=== PATIENT | female | born 1960 | race Caucasian/White ===

== ENCOUNTER 2017-10-24 01:19 | Outpatient (CLI) | payer OTHER, SELFPAY ==
--- NOTE | 2017-10-24 13:30 | DI.US_ITS ---
SYMPTOMS/DIAGNOSIS: URIC ACID KIDNEY STONE, N20.0, F/U BILATERAL STONES RENAL ULTRASOUND: The kidneys are normal in size and shape. There is no evidence of renal mass, hydronephrosis or nephrolithiasis. Previous CT of 08/17/16 showed numerous bilateral tiny renal calculi. Urinary bladder is unremarkable in appearance with pre and postvoid urinary bladder volume measurements 95 cc and 7 cc, respectively. CONCLUSION: Negative renal ultrasound.
== END 2017-10-24 01:39 ==
PROVIDERS: PCP Family Medicine; Visit Provider Urology
DX: N20.0 Calculus of kidney (principal)
CPT/HCPCS: 76770

== ENCOUNTER 2020-01-17 13:00 | Emergency (ER) | payer OTHER, SELFPAY ==
[2020-01-17 13:08] VITALS: BP 206/70; PULSE 95; RESP 16; TEMP 36.4; O2SAT 97
[2020-01-17 13:18] LABS: Bilirubin Negative (Negative); Blood Moderate (Negative); Clarity Sl Cloudy (Clear); Glucose Negative (Negative); Ketones Negative (Negative); Leukocyte Esterase Negative (Negative); Nitrite Negative (Negative); Specific Gravity >= 1.030 (1.005-1.025); Urobilinogen 0.2 EU/dL (Up TO 0.2)
--- NOTE | 2020-01-17 13:18 | W.ED.GENAD ---
Discharge Plan Disposition Patient Disposition: HOME Condition: Stable Discharge Details Clinical Impression: Kidney stones Primary Care Provider: Carleen Dan ED Provider: Taylor Em Home Meds and New Rx's Prescriptions: New tamsulosin 0.4 mg capsule 0.4 mg PO DAILY 7 Days Qty: 7 RF: 0 ketorolac 10 mg tablet 10 mg PO TID PRN (Reason: pain) 5 Days Qty: 15 RF: 0 No Action potassium citrate [Urocit-K 15] 15 mEq tablet extended release 15 meq PO BID Qty: 180 RF: 4 Discharge Instructions Instructions: Kidney Stones (ED) Additional Instructions: CT shows a 5mm stone in the left distal ureter (the tube leading into your bladder). At this time it does not appear to be infected. We will give you pain medications and Flomax to help the stone pass. Strain all your urine. Follow up with urology in the next week. Return to ED for any fever, vomiting, or any concerns. Please take Tylenol or Ibuprofen with food every 4-6 hours as needed for pain and swelling. Referrals: Andrae Storey MD [ [facility] STAFF PHYSICIAN] - Carleen Dan MD, [place] [Primary Care Provider] - Medical Decision Making 59-year-old female presents to the ER with chief complaint of left flank pain which began this morning. She reports that she has a history of kidney stones and this feels similar. She denies any nausea vomiting or fever. She does have a past medical history kidney stones, vertigo, she does have an ileostomy in place. She reports straining for urine and hesitancy 1446: Preliminary CT result obtained by Dr. Corbett radiologist who describes multiple bilateral nonobstructing renal calculus bilateral kidneys. There is a 5 mm distal ureter obstructing stone and another 1 mm stone in the left distal ureter. EXAM: CT RENAL COLIC WO INDICATION: Left flank pain, hx of kidney stones. COMPARISON: CT RENAL COLIC WO CONTRAST from 08/17/2016 TECHNIQUE: CT examination was performed without contrast administration. FINDINGS: Images obtained through the lung bases are unremarkable. Visualized portions of the liver and spleen appear intact except for apparent geographic hepatic steatosis.. Visualized portions of the pancreas are unremarkable. Gallbladder and bile ducts are CT normal. Abdominal aorta is of normal diameter. No significant abdominal wall hernia. No significant abdominal or pelvic adenopathy. There is a right lower quadrant ileostomy. Adrenals appear normal bilaterally. There are multiple bilateral nonobstructing renal calculi. There is no right hydronephrosis hydroureter. On the left there is moderate hydronephrosis hydroureter to the level of the ureterovesical junction where there appear to be a least 2 stones, 1 measuring about 5 millimeters in diameter, and the other measuring about 1 millimeter in diameter. The more medially located stone may lie within the bladder lumen or may be intramural. Otherwise urinary bladder is grossly unremarkable and is nearly empty. Party Host/Hostess structures appear intact as visualized. IMPRESSION: Multiple bilateral nonobstructing renal calculi. One or 2 obstructing stones at the ureterovesical junction, 1 or both stones may be intramural. At this time there is no evidence of a infected stone. Urine shows moderate blood, 10-20 WBCs with many epithelial cells no leukocytes. Culture not indicated at this time due to squamous contamination. No leukocytosis WBC count is 9.02. BUN is 18 creatinine is 1.[address] results with patient who verbalized understanding. She does see Dr. Storey on a regular basis. She feels much better after the Toradol. Will prescribe her tamsulosin and Toradol to go home with. Patient remained hemodynamically stable throughout stay. This text was generated using [employer] dictation system, please disregard any oddities of phrase or misspellings. HPI General Mode of arrival: ambulatory. Date/Time Provider Initiated Documentation: 01/17/20 13:10. Limitations to Documentation: no limitations. Information obtained by: patient. HPI Narrative: 59-year-old female presents to the ER with chief complaint of left flank pain which began this morning. She reports that she has a history of kidney stones and this feels similar. She denies any nausea vomiting or fever. She does have a past medical history kidney stones, vertigo, she does have an ileostomy in place. She reports straining for urine and hesitancy. Related Data Home Medications Medication Instructions Recorded Confirmed potassium citrate 15 mEq (1,620 15 meq PO BID #180 tab-cap 11/26/18 01/17/20 mg) tablet,extended release ketorolac 10 mg PO TID PRN 5 Days #15 tab 01/17/20 tamsulosin 0.4 mg PO DAILY 7 Days #7 cap 01/17/20 Previous Rx's Medication Instructions Recorded potassium citrate 15 mEq (1,620 15 meq PO BID #180 tab-cap 11/26/18 mg) tablet,extended release ketorolac 10 mg PO TID PRN 5 Days #15 tab 01/17/20 tamsulosin 0.4 mg PO DAILY 7 Days #7 cap 01/17/20 Allergies Allergy/AdvReac Type Severity Reaction Status Date / Time mesalamine Allergy HIVES Unverified 01/17/20 13:11 Sulfa (Sulfonamide Allergy Unverified 01/17/20 13:11 Antibiotics) General Stated Complaint: FlankPain ALIE: 3 Review of Systems Narrative: Constitutional: Negative for weight loss, alert and oriented, well groomed, normal body habitus, appears comfortable. HEENT: Denies trauma, headaches, blurry vision, nasal discharge, sore throat, trouble swallowing. Chest: Denies chest pain, palpitations, irregular rhythm, hypertension. Respiratory: Denies Shortness of breath, cough, hemoptysis. GI: Denies abdominal pain, nausea, vomiting, diarrhea, constipation. : Denies rectal bleeding. Positive left flank pain, urinary hesitancy. Neuro: Denies dizziness, blurry vision, weakness, syncope, headache or facial numbness. Hematologic: Denies easy bruising, intolerance to heat or cold, hair loss. FORMERLY [facility], 1928–1983 Medical History (Updated 01/17/20 @ 14:50 by Taylor Em) Kidney stones Surgical History MOHS SURGERY (02/02/16) [facility] Family History Maternal Cousin RA (rheumatoid arthritis) Ulcerative colitis Maternal Cousin Ulcerative colitis Social History Smoking/Tobacco Use Status: Never Smoking risk assessment performed?: Yes Alcohol Intake: never Substance use type: does not use Do you feel safe in your relationship?: Yes Exam Narrative Exam Narrative: Constitutional: Alert and oriented x3. Appears stated age. Normal body habitus. Head: Normocephalic, no trauma. Eyes: Pupils PERRLA, Red reflex noted, EOM's intact. Eyelids symmetrical without lesions, discharge, or swelling. ENT: Bilateral TM's WNL, External ear normal to inspection, no mastoid TTP, swelling, or erythema, Nasal turbinates WNL, no nasal discharge. Normal dentition, Posterior pharynx WNL, no exudate. Chest: RRR, Normal S1, S2, distal pulses intact. Resp: Lungs clear to auscultation bilaterally, no wheezes, rales, or rhonchi. Abdomen: She is complaining of left flank pain, she has an ileostomy bag noted to her right lower quadrant. Musculoskeletal: Normal gait, 5/5 strength to all four extremities. Skin: No suspicious rashes or lesions. Capillary refill less than 2 sec. Neurologic: Cranial nerves II-XII intact. Alert and oriented x 3. DTR's intact. Hematologic/Lymphatic: No ecchymosis, no lymphadenopathy. Course Vital Signs Vital signs: Vital Signs Temperature 36.4 C L 01/17/20 13:08 Pulse 95 H 01/17/20 13:08 Respiratory Rate 16 01/17/20 13:08 Blood Pressure 206/70 H 01/17/20 13:08 Pulse Oximetry 97 01/17/20 13:08 Temperature 36.4 C L 01/17/20 13:08 Temperature Source Skin 01/17/20 13:08 Pulse 95 H 01/17/20 13:08 Respiratory Rate 16 01/17/20 13:08 Respiratory Effort 01/17/20 13:08 Blood Pressure 206/70 H 01/17/20 13:08 Blood Pressure Position Sitting 01/17/20 13:08 Pulse Oximetry 97 01/17/20 13:08 Oxygen Delivery Method Room Air 01/17/20 13:08 Oxygen Flow Rate 0 01/17/20 13:08 Pain Level 6 01/17/20 13:08
[2020-01-17 13:31] LABS: Bacteria Many HPF (Negative); C & S Indicated? No/Sq. Contamination; Casts Negative LPF (Negative); Crystals Negative HPF (Negative); Epithelial Cells Many HPF (Negative); Mucus Negative (Negative); RBC 20-50 HPF (0-2)
[2020-01-17 13:38] LABS: Abs Immature Grans 0.02 10^3/uL (0.0-0.06); Absolute Basophil Count 0.05 10^3/uL (0.0-0.2); Absolute Lymphocyte Count 3.36 10^3/uL (1.2-3.4); Absolute Monocyte Count 0.62 10^3/uL (0.1-0.8); Absolute Neutrophil Count 4.77 10^3/uL (1.2-6.7); Basophils % 0.6; Eosinophils % 2.2; HCT 46.3 % (36.0-46.0); HGB 14.6 g/dL (11.2-15.7); Immature Grans % 0.2; Lymphocytes % 37.3; MCH 26.8 pg (27.0-33.0); MCHC 31.5 % (32.0-36.0); MPV 10.2 fL (8.0-11.0); Monocytes % 6.9; Neutrophils % 52.8; Nucleated RBC 0 %; Platelet Count 291 10^3/uL (130-400); RBC 5.45 10^6/uL (3.93-5.22); RDW 13.9 % (11.7-14.6); RDW-SD 43.1 fL; WBC 9.02 10^3/uL (4.4-10.8)
[2020-01-17 13:44] LABS: ALT 52 U/L (14-59); AST 23 U/L (15-37); Albumin 3.8 g/dL (3.4-5.0); Alkaline Phosphatase 111 U/L (46-116); Anion Gap 7.1 mmol/L (3-11); BUN 18 mg/dL (7-18); Bilirubin, Total 0.4 mg/dL (0.2-1.0); CO2 26.9 mmol/L (21.0-32.0); CREATININE 1.07 mg/dL (0.55-1.02); Calcium 8.5 mg/dL (8.5-10.1); Chloride 106 mmol/L (98-107); Estimated GFR 52.13 (mL/min/1.73m2); Glucose 106 mg/dL (74-106); Potassium 3.6 mmol/L (3.5-5.1); Sodium 140 mmol/L (136-145); Total Protein 7.9 g/dL (6.4-8.2)
[2020-01-17] MEDS: Ketorolac 15 MG/ML VIAL IVP (13:52)
[2020-01-17] MEDS: Ondansetron 4 MG/2 ML VIAL IVP (13:53)
[2020-01-17] MEDS: Normal Saline 1,000 ML 1000 ML IV (14:03)
--- NOTE | 2020-01-17 14:21 | DI.CT_ITS ---
EXAM: CT RENAL COLIC WO INDICATION: Left flank pain, hx of kidney stones. COMPARISON: CT RENAL COLIC WO CONTRAST from 08/17/2016 TECHNIQUE: CT examination was performed without contrast administration. FINDINGS: Images obtained through the lung bases are unremarkable. Visualized portions of the liver and splee n appear intact except for apparent geographic hepatic steatosis.. Visualized portions of the pancreas are unremarkable. Gallbladder and bile ducts are CT normal. Abdominal aorta is of normal diameter. No significant abdominal wall hernia. No significant abdominal or pelvic adenopathy. There is a right lower quadrant ileostomy. Adrenals appear normal bilaterally. There are multiple bilateral nonobstructing renal calculi. There is no right hydronephrosis hydroure ter. On the left there is moderate hydronephrosis hydroureter to the level of the ureterovesical junction where there appear to be a least 2 stones, 1 measuring about 5 millimeters in diameter, and the other measuring about 1 millimeter in diameter. The more medially located stone may lie within the bladde r lumen or may be intramural. Otherwise urinary bladder is grossly unremarkable and is nearly empty. Director Quality Assurance structures appear intact as visualized. IMPRESSION: Multiple bilateral nonobstructing renal calculi. One or 2 obstructing stones at the ureterovesical junction, 1 or both stones may be intramural. RADIATION DOSE DELIVERED: 1,267.65mGy.cm Total DLP
[2020-01-17 14:41] VITALS: BP 170/81; PULSE 81; RESP 18; O2SAT 97
[2020-01-17] MEDS: Tamsulosin 0.4 MG CAPCR PO (14:52)
--- NOTE | 2020-01-17 15:20 | NUR.NOTE ---
Nursing Note: Referral for follow up with Urology, [facility] faxed. Anne-Marie Silver
== END 2020-01-17 15:15 | disposition home or self-care (01) ==
PROVIDERS: Emergency Provider Registered Nurse Emergency; PCP Family Medicine
DX: N13.2 Hydronephrosis with renal and ureteral calculous obstruction (principal); N13.4 Hydroureter; Z87.442 Personal history of urinary calculi
CPT/HCPCS: 36415; 80053; 96361; 96374; 96375; 99284; 74176; 81003; 81015; 85025; J1885; J2405

== ENCOUNTER 2020-02-24 00:57 | Outpatient (CLI) | payer OTHER, SELFPAY ==
--- NOTE | 2020-02-24 08:00 | DI.US_ITS ---
EXAM: US RENAL CLINICAL HISTORY: monitoring left hydronephrosis,calculus of kidney,n20.0,n13.30 TECHNIQUE: Ultrasound of both kidneys performed using standard protocol. COMPARISON: US US renal from 10/24/2017 FINDINGS: RIGHT KIDNEY: Measures 12 cm in length. No cysts evident. Normal cortical thickness and corticomedullary differenti ation .No solid masses There is 3 small nonobstructive echogenic foci. One in the upper pole 1 in the midpole and 1 in lowe r pole. The largest measuring 5 millimeters. Probably nonobstructive calculi. LEFT KIDNEY: Measures 12.2 cm in length. Normal cortical thickness and corticomedullary differentiaion. No solid s masses. Multiple small echogenic foci measuring up to 5 millimeters also noted on this side which a re probably nonobstructive calculi. In the lower pole there are 2 adjacent cystic areas which are ei ther cysts or dilated calices. Urinary bladder: Prevoid volume 250 cc. Postvoid volume 8.6 cc. No obvious mass in the bladder. Walter th ureterovesical jets are identified. In addition, an additional ureterovesical jet was noted on th e right side which may indicated double collecting system. IMPRESSION: 1. Bilateral nonobstructive renal calculi. These measure up to 5 millimeters. 2. Small 2 adjacent cyst or calices in the lower pole left kidney. 3. There are 2 ureterovesical jets noted on the right side of the urinary bladder which may indicate a double collecting system on the right side. DATA REPOSITORY:
== END 2020-02-24 01:17 ==
PROVIDERS: PCP Nurse Practitioner Family; Visit Provider Nurse Practitioner Gerontology
DX: N20.0 Calculus of kidney (principal); N13.30 Unspecified hydronephrosis
CPT/HCPCS: 76770

== ENCOUNTER 2020-02-28 04:07 | Outpatient (CLI) | payer OTHER, SELFPAY ==
--- NOTE | 2020-02-28 08:15 | DI.MAMMO_ITS ---
EXAM: MG MAMMO SCREENING CLINICAL HISTORY: screening,Z12.39. TECHNIQUE: Bilateral full field digital CC and MLO mammographic images were obtained with 3D tomosyn thesis and utilizing computer aided detection (CAD). COMPARISON: Prior mammograms dating back to 2013, the most recent being August 2016. FINDINGS: Asymmetric tissue in left breast is unchanged. Small benign-appearing nodule located laterally left breast is unchanged from 2014 and therefore benign. No new left breast findings. There is nodular density in the right breast best seen on see CT imaging, this located approximately 7 centimetres in from the nipple and measuring 7 x 7 millimeters. On cc imaging there is also anothe r nodule in the right breast measuring 7 x 5 millimeters, this located 10 centimetres in from the nip ple. Spot compression view also recommended spot compression view and ultrasound recommended. There are no malignant-appearing microcalcification groups in either breast. There is no significant arch itectural distortion nor skin thickening-retraction. IMPRESSION: No radiographic evidence of malignancy in left breast. Two nodular densities evident in the right breast. Spot-compression CC and straight lateral 3D views recommended. Also breast ultrasound. BI-RADS Category 0 - Assessment Incomplete: Need additional imaging evaluation Breast Density - Category B - Scattered areas of fibroglandular density Breast density Category C or D implies that the patient has dense breast tissue. Dense breast tissue can make it harder to find cancer on a mammogram. Dense breast tissue is also associated with an incr eased risk of breast cancer. This information about the result of the mammogram report was provided to the patient to raise their awareness. Use this report when you speak with the patient about their risks for breast cancer, which includes their family history. At that time, you may recommend additional screening tests (Ultrasoun d or MRI) as these tests may add significant information. A negative radiographic report should not delay biopsy if a dominant or clinically suspicious mass is present. Up to ten percent of cancers are not identified on mammography. A negative report may reinforce clinical impression. Adenosis and dense breasts may obscure an underlying neoplasm. False positive reports average 6 to 10%. Patient will receive a letter notifying them of these results.
== END 2020-02-28 04:27 ==
PROVIDERS: PCP Nurse Practitioner Family; Visit Provider Nurse Practitioner Family
DX: Z12.31 Encounter for screening mammogram for malignant neoplasm of breast (principal); R92.8 Other abnormal and inconclusive findings on diagnostic imaging of breast
CPT/HCPCS: 77063; 77067

== ENCOUNTER 2020-03-06 03:40 | Outpatient (CLI) | payer OTHER, SELFPAY ==
[2020-03-06 09:40] LABS: ALT 43 U/L (14-59); AST 18 U/L (15-37); Albumin 3.9 g/dL (3.4-5.0); Alkaline Phosphatase 101 U/L (46-116); Anion Gap 6.8 mmol/L (3-11); BUN 17 mg/dL (7-18); Bilirubin, Total 0.4 mg/dL (0.2-1.0); CO2 29.2 mmol/L (21.0-32.0); CREATININE 1.01 mg/dL (0.55-1.02); Calcium 9.1 mg/dL (8.5-10.1); Chloride 102 mmol/L (98-107); Estimated GFR 55.72 (mL/min/1.73m2); FREE T4 1.15 ng/dL (0.76-1.46); Glucose 99 mg/dL (74-106); Potassium 4.7 mmol/L (3.5-5.1); Sodium 138 mmol/L (136-145); TSH 1.43 uIU/mL (0.36-3.74); Total Protein 7.5 g/dL (6.4-8.2)
[2020-03-06 10:51] LABS: Calculated LDL 176 mg/dL (<100); Cholesterol 261 mg/dL (<200); HDL Cholesterol 54 mg/dL (40-60); Triglyceride 156 mg/dL (<150)
[2020-03-06 11:54] LABS: ESR 16 mm/hr (0-30)
[2020-03-06 18:03] LABS: Rheumatoid Factor <8.6 IU/mL (<12.0)
== END 2020-03-06 04:00 ==
PROVIDERS: PCP Nurse Practitioner Family; Visit Provider Nurse Practitioner Family
DX: E78.5 Hyperlipidemia, unspecified (principal); M19.90 Unspecified osteoarthritis, unspecified site; Z82.61 Family history of arthritis; Z87.19 Personal history of other diseases of the digestive system
CPT/HCPCS: 36415; 80053; 80061; 85652; 83036; 84439; 84443; 86431

== ENCOUNTER 2020-03-10 00:28 | Outpatient (CLI) | payer OTHER, SELFPAY ==
--- NOTE | 2020-03-10 | DI.US_ITS ---
EXAM: MG MAMMO SCREEN CALL BACK UNI and U/S breast RT limited CLINICAL HISTORY: F/U MAMMO,TWO RT BREAST NODULAR DENSITIES. TECHNIQUE: Craniocaudal and mediolateral oblique Full Field Digital Mammography views of the right b reast with Computer Aided Diagnosis followed by Tomosynthesis and right breast ultrasound. COMPARISON: Comparison is made with prior examinations. FINDINGS: Mammography/Tomosynthesis: Masses/Architectural Distortion: None seen. Microcalcifictions: No suspicious pleomorphic-type are seen. Skin Thickening/Nipple Retraction: None. Right breast US: All 4 quadrants of the right breast were evaluated sonographically. Echotexture: Normal appearance of the glandular tissue. Shadowing: No suspicious foci. Cyst: There is a 5 x 2 x 4 mm cyst at the 11 o'clock position of the right breast 7 cm from the nippl e. There is a 5 x 4 x 5 mm cyst at the 10 o'clock position of the right breast 10 cm from the nipple . Solid lesions: None seen. Ductal dilation: None. IMPRESSION: 1. No definite evidence of malignancy is noted. 2. A six-month follow-up right mammogram is recommended for re-evaluation. 3. The findings were discussed with the patient on the date of the examination. BI-RADS Category 3 - 6 month - Probably Benign Finding: Recommend follow-up mammography in 6 months Breast Density - Category B - Scattered areas of fibroglandular density A negative radiographic report should not delay biopsy if a dominant or clinically suspicious mass is present. Up to ten percent of cancers are not identified on mammography. A negative report may reinforce clinical impression. Adenosis and dense breasts may obscure an underlying neoplasm. False positive reports average 6 to 10%. Patient will receive a letter notifying them of these results.
== END 2020-03-10 00:48 ==
PROVIDERS: PCP Nurse Practitioner Family; Visit Provider Nurse Practitioner Family
DX: Z12.31 Encounter for screening mammogram for malignant neoplasm of breast (principal); R92.8 Other abnormal and inconclusive findings on diagnostic imaging of breast; N60.11 Diffuse cystic mastopathy of right breast
CPT/HCPCS: 76642; 77063; 77067

== ENCOUNTER 2020-09-15 01:57 | Outpatient (CLI) | payer OTHER, SELFPAY ==
--- NOTE | 2020-09-15 10:00 | DI.MAMMO_ITS ---
Exam(s) MAMMO DIAGNOSTIC UNI EXAM: MAMMO DIAGNOSTIC UNI CLINICAL HISTORY: 3-6 MO F/U,f/u abnl mammo, z09,r92.8. TECHNIQUE: Craniocaudal and mediolateral oblique Full Field Digital Mammography views of the right b reast with Computer Aided Diagnosis followed by Tomosynthesis. COMPARISON: Priors available for comparison. FINDINGS: Mammography/Tomosynthesis: Masses/Architectural Distortion: There are stable scattered nodular densities in the right breast. Microcalcifictions: No suspicious pleomorphic-type are seen. Skin Thickening/Nipple Retraction: None. IMPRESSION: 1. No evidence of malignancy is noted. 2. Unless there is more urgent need, follow-up screening mammography is recommended, as per [employer] guidelines. 3. The findings were discussed with the patient on the date of the examination. BI-RADS Category 2 - Benign Findings Breast Density - Category B - Scattered areas of fibroglandular density Breast density Category C or D implies that the patient has dense breast tissue. Dense breast tissue can make it harder to find cancer on a mammogram. Dense breast tissue is also associated with an incr eased risk of breast cancer. This information about the result of the mammogram report was provided to the patient to raise their awareness. Use this report when you speak with the patient about their risks for breast cancer, which includes their family history. At that time, you may recommend additional screening tests (Ultrasoun d or MRI) as these tests may add significant information. A negative radiographic report should not delay biopsy if a dominant or clinically suspicious mass is present. Up to ten percent of cancers are not identified on mammography. A negative report may reinforce clinical impression. Adenosis and dense breasts may obscure an underlying neoplasm. False positive reports average 6 to 10%. Patient will receive a letter notifying them of these results.
== END 2020-09-15 02:17 ==
PROVIDERS: PCP Nurse Practitioner Family; Visit Provider Nurse Practitioner Family
DX: Z09 Encounter for follow-up examination after completed treatment for conditions other than malignant neoplasm (principal); R92.8 Other abnormal and inconclusive findings on diagnostic imaging of breast
CPT/HCPCS: 77061; 77065; G0279

== ENCOUNTER 2021-01-05 09:41 | Outpatient (CLI) | payer OTHER, SELFPAY ==
--- NOTE | 2021-01-05 | DI.RAD_ITS ---
Exam(s) XR HIP RT COMPLETE AP PELVIS EXAM: XR HIP RT COMPLETE AP PELVIS INDICATION: PRIMARY OA RT HIP, M16.11. COMPARISON: CT CT RENAL COLIC WO from 01/17/[address] RENAL COLIC WO from 01/17/2020 TECHNIQUE: 2D digital imaging was performed. FINDINGS: There is severe narrowing of both hip joint spaces. There is bilateral acetabular spurring, left gre ater than right. Subchondral cyst formation is seen bilaterally. There is a question slight flatten ing of both femoral heads. SI joints and pubic symphysis are unremarkable. A right lower quadrant o stomy is noted. IMPRESSION: Severe degenerative changes of both hips. DATA REPOSITORY: RADIATION DOSE DELIVERED:
== END 2021-01-05 10:01 ==
PROVIDERS: PCP Nurse Practitioner Family; Visit Provider Nurse Practitioner
DX: M16.0 Bilateral primary osteoarthritis of hip (principal)
CPT/HCPCS: 73502

== ENCOUNTER 2021-03-31 00:08 | Outpatient (CLI) | payer OTHER, SELFPAY ==
--- NOTE | 2021-03-31 06:45 | DI.MAMMO_ITS ---
Exam(s) MAMMO SCREENING EXAM: MAMMO SCREENING CLINICAL HISTORY: screening,z12.39. TECHNIQUE: Bilateral full field digital CC and MLO mammographic images were obtained with 3D tomosyn thesis and utilizing computer aided detection (CAD). COMPARISON: Prior mammograms dating back to 2012 were reviewed, the most recent being February 2020 a nd diagnostic mammogram of August 2020. Ultrasound examination of February 2020 was also reviewed. FINDINGS: Asymmetric tissue and small benign-appearing nodules in the left breast are unchanged from 2013. Small nodular densities seen in the right breast on CC 3D imaging are unchanged. There are no new spiculated masses nor new malignant appearing microcalcification groups. There is no significant architectural distortion nor skin thickening-retraction. IMPRESSION: Stable benign findings. No radiographic evidence of malignancy. BI-RADS Category 2 - Benign Findings Breast Density - Category B - Scattered areas of fibroglandular density Breast density Category C or D implies that the patient has dense breast tissue. Dense breast tissue can make it harder to find cancer on a mammogram. Dense breast tissue is also associated with an incr eased risk of breast cancer. This information about the result of the mammogram report was provided to the patient to raise their awareness. Use this report when you speak with the patient about their risks for breast cancer, which includes their family history. At that time, you may recommend additional screening tests (Ultrasoun d or MRI) as these tests may add significant information. A negative radiographic report should not delay biopsy if a dominant or clinically suspicious mass is present. Up to ten percent of cancers are not identified on mammography. A negative report may reinforce clinical impression. Adenosis and dense breasts may obscure an underlying neoplasm. False positive reports average 6 to 10%. Patient will receive a letter notifying them of these results.
== END 2021-03-31 00:28 ==
PROVIDERS: PCP Nurse Practitioner Family; Visit Provider Nurse Practitioner Family
DX: Z12.31 Encounter for screening mammogram for malignant neoplasm of breast (principal)
CPT/HCPCS: 77063; 77067

== ENCOUNTER 2021-05-03 15:34 | Outpatient (CLI) | payer OTHER, SELFPAY ==
--- NOTE | 2021-05-03 14:45 | DI.RAD_ITS ---
Exam(s) XR PELVIS AP EXAM: XR PELVIS AP CLINICAL HISTORY: pre op R CHAI. TECHNIQUE: 2D digital imaging was performed. COMPARISON: CR XR HIP RT COMPLETE AP PELVIS from 01/05/2021 FINDINGS: BONES: No acute fracture is present. No bony destructive lesion is seen. JOINTS: No dislocation present. Severe narrowing of the right hip joint space. Subchondral cysts a nd periarticular spurring. More severe when compared the previous exam. Prominent acetabular spurri ng at the left hip. Moderate to severe superior left hip joint space narrowing. SOFT TISSUE: Right lower quadrant ostomy with bag overlying the right hip. IMPRESSION: End-stage degenerative changes of the right hip. Moderate to severe degenerative changes of the left hip. DATA REPOSITORY: RADIATION DOSE DELIVERED:
== END 2021-05-03 15:35 | disposition home or self-care (01) ==
LOC: DIORS 15:34
PROVIDERS: PCP Nurse Practitioner Family; Visit Provider Student in an Organized Health Care Education/Training Program
DX: M16.0 Bilateral primary osteoarthritis of hip (principal)
CPT/HCPCS: 72170

== ENCOUNTER 2021-05-17 03:33 | Outpatient (CLI) | payer OTHER, SELFPAY ==
[2021-05-17 08:49] LABS: HCT 48.7 % (36.0-46.0); MCH 26.8 pg (27.0-33.0); MCHC 30.8 % (32.0-36.0); MPV 10.7 fL (8.0-11.0); Platelet Count 267 10^3/uL (130-400); RDW 13.8 % (11.7-14.6); RDW-SD 44.5 fL; WBC 7.12 10^3/uL (4.4-10.8)
[2021-05-17 09:02] LABS: Hemoglobin A1C 6.1 % (<5.7)
[2021-05-17 09:54] LABS: Anion Gap 5.8 mmol/L (3-11); BUN 20 mg/dL (7-18); CO2 29.2 mmol/L (21.0-32.0); CREATININE 1.1 mg/dL (0.55-1.02); Calcium 9.2 mg/dL (8.5-10.1); Calculated LDL 150 mg/dL (<100); Chloride 105 mmol/L (98-107); Cholesterol 245 mg/dL (<200); Estimated GFR 50.33 (mL/min/1.73m2); Glucose 106 mg/dL (74-106); HDL Cholesterol 56 mg/dL (40-60); Potassium 4.7 mmol/L (3.5-5.1); Sodium 140 mmol/L (136-145); Triglyceride 198 mg/dL (<150)
== END 2021-05-17 03:34 | disposition home or self-care (01) ==
LOC: LBO 03:33
PROVIDERS: PCP Nurse Practitioner Family; Visit Provider Student in an Organized Health Care Education/Training Program
DX: M25.551 Pain in right hip (principal); M16.11 Unilateral primary osteoarthritis, right hip; R73.03 Prediabetes; E78.5 Hyperlipidemia, unspecified; Z01.818 Encounter for other preprocedural examination; Z01.812 Encounter for preprocedural laboratory examination
CPT/HCPCS: 36415; 80048; 80061; 85027; 83036

== ENCOUNTER 2021-05-19 02:46 | Outpatient (CLI) | payer OTHER, SELFPAY ==
[2021-05-19 10:22] LABS: Source Nasal/Nares
[2021-05-19 12:56] LABS: COVID-19 PCR Negative (Negative)
== END 2021-05-19 02:47 | disposition home or self-care (01) ==
LOC: LBO 02:47
PROVIDERS: PCP Nurse Practitioner Family; Visit Provider Student in an Organized Health Care Education/Training Program
DX: Z20.822 Contact with and (suspected) exposure to COVID-19 (principal)
CPT/HCPCS: 87635

== ENCOUNTER 2021-05-21 06:02 | Day surgery (SDC) | payer OTHER, SELFPAY ==
--- NOTE | 2021-05-21 06:10 | W.ANESPRE ---
General Info Date of Service Date Performed: 05/21/21 Height: 5 ft 6 in Weight: 91.626 kg Body Mass Index (BMI): 32.5 Surgical Procedure: Operation Date: 05/21/21 07:50 Proposed Procedure Side Surgeon p Hip Total Hip Anterior Right Jonathan Canas MD Meds Allergies and Home Medications Allergies Allergy/AdvReac Type Severity Reaction Status Date / Time mesalamine Allergy HIVES Verified 05/21/21 06:18 Sulfa (Sulfonamide Allergy Verified 05/21/21 06:18 Antibiotics) Home Medication Medication Instructions Recorded lorazepam 1 mg tablet 1 mg PO ONCE PRN #10 tab 03/15/21 potassium citrate 15 mEq (1,620 15 meq PO BID #180 tab-cap 04/12/21 mg) tablet,extended release (Urocit-K 15) cholecalciferol (vitamin D3) 50 50 mcg PO DAILY 05/07/21 mcg (2,000 unit) capsule magnesium citrate 100 mg capsule 150 mg PO DAILY cap 05/07/21 omeprazole 10 mg capsule,delayed 10 mg PO DAILY PRN 05/21/21 release Current Visit Medications: Current Medications Generic Name Dose Route Start Last Admin Trade Name Freq PRN Reason Stop Dose Admin Acetaminophen 1,000 mg 05/21/21 06:00 Acetaminophen 500 Mg Tab PO 05/21/21 23:59 PREOP KRANTHI Celecoxib 400 mg 05/21/21 06:00 Celecoxib 200 Mg Cap PO 05/21/21 16:00 PREOP KRANTHI Ringer's Solution 1,000 mls @ 80 mls/hr 05/21/21 06:00 IV 06/19/21 23:59 INFUSION KRANTHI Cefazolin Sodium/Dextrose 2 gm in 50 mls @ 100 mls/hr 05/21/21 06:00 Ancef Duplex IVPB 05/21/21 23:59 PREOP KRANTHI Tranexamic Acid 1,000 mg/ 60 mls @ 360 mls/hr 05/21/21 06:00 Sodium Chloride IVPB 05/21/21 16:00 PREOP KRANTHI IV Miscellaneous Supplies 1 each 05/21/21 06:00 Iv Access IV 06/19/21 23:59 DIRECTED KRANTHI Sodium Chloride 0 ml 05/21/21 06:00 Normal Saline Flush 10 Ml Syr IV 06/19/21 23:59 PRN PRN Sodium Chloride 0 ml 05/21/21 06:00 Normal Saline 10 Ml Vial IJ 06/19/21 23:59 DIRECTED PRN Sterile Water 0 ml 05/21/21 06:00 Water,Injection,Sterile 10 Ml Vial IJ 06/19/21 23:59 DIRECTED PRN PFSH Active Problems Active Problems: Problem Status Onset Code Primary osteoarthritis of right hip M16.11 Generalized anxiety disorder with panic attacks F41.1, F41.0 Prediabetes R73.03 Elevated blood pressure reading without diagnosis of hypertension R03.0 Hyperlipidemia E78.5 Renal calculi N20.0 Osteoarthritis M19.90 Medical History Medical History (Updated 05/21/21 @ 06:19 by Sharon Cook) Basal cell carcinoma of chest Basal cell carcinoma of right side of nose Chronic kidney disease Ulcerative colitis S/p total proctocolectomy and ileostomy Surgical History Surgical History (Updated 05/21/21 @ 06:21 by Sharon Cook) H/O cystoscopy Hx of ileostomy (05/14/98) S/P proctocolectomy (05/14/98) Total proctocolectomy with ileostomy S/P tonsillectomy Status post Mohs surgery Tobacco Smoking/Tobacco Use Status: Never Passive smoking exposure: Yes Alcohol Alcohol Intake: never Substance Use Substance use type: does not use Prental History History 2 Para 2 Hx # Term Pregnancies Multiple births Hx # Pregnancies Ectopic pregnancies AB induced Hx Number of Living Children 2 AB spontaneous Vital Signs and Lab Results Vital Signs Most Recent Vital Signs in EMR: Temp Pulse Resp BP Pulse Ox 36.5 C 88 16 150/85 H 97 05/21/21 06:22 05/21/21 06:22 05/21/21 06:22 05/21/21 06:22 05/21/21 06:22 Lab Results Blood Type / Crossmatch: No Data to Display Complete Blood Count: White Blood Count 7.12 10^3/uL (4.4-10.8) 05/17/21 08:40 05/17/21 Red Blood Count 5.60 10^6/uL (3.93-5.22) H 05/17/21 08:40 05/17/21 Hemoglobin 15.0 g/dL (11.2-15.7) 05/17/21 08:40 05/17/21 Hematocrit 48.7 % (36.0-46.0) H 05/17/21 08:40 05/17/21 Platelet Count 267 10^3/uL (130-400) 05/17/21 08:40 05/17/21 Complete Metabolic Panel: Sodium Level 140 mmol/L (136-145) 05/17/21 08:40 05/17/21 Potassium Level 4.7 mmol/L (3.5-5.1) 05/17/21 08:40 05/17/21 Chloride Level 105 mmol/L (98-107) 05/17/21 08:40 05/17/21 Carbon Dioxide Level 29.2 mmol/L (21.0-32.0) 05/17/21 08:40 05/17/21 Blood Urea Nitrogen 20 mg/dL (7-18) H 05/17/21 08:40 05/17/21 Creatinine 1.1 mg/dL (0.55-1.02) H 05/17/21 08:40 05/17/21 Estimated GFR/1.73 m2 50.33 (mL/min/1.73m2) 05/17/21 08:40 05/17/21 Calcium Level 9.2 mg/dL (8.5-10.1) 05/17/21 08:40 05/17/21 Glucose Level 106 mg/dL (74-106) 05/17/21 08:40 05/17/21 Hemoglobin A1c 6.1 % (<5.7) H 05/17/21 08:40 05/17/21 Liver Function Panel: No Data to Display Coagulation Panel: No Data to Display Cardiac Panel: No Data to Display Arterial Blood Gas: No Data to Display Venous Blood Gas: No Data to Display Pancreas Panel: No Data to Display Thyroid Panel: No Data to Display Infectious Disease: Coronavirus (COVID-19)(PCR) Negative (Negative) 05/19/21 08:52 05/19/21 Coronavirus 2019 Source Nasal/Nares 05/19/21 08:52 05/19/21 Blood Cultures: No Data to Display Toxicology Panel: No Data to Display Anesthesia Assessment and Plan Anesthesia History Personal History: No History of Anesthesia Complications Family History: No Family History of Anesthesia Complications Exercise Tolerance Exercise Tolerance: Metabolic Equivalents>4 Pertinent Negatives Pertinent Negatives: No Symptoms of GERD, No Major Cardiovascular Symptoms or Complaints, No Major Pulmonary Symptoms or Complaints, No History of CVA/TIA and Other (Chronic kidney disease) Cardiac & Pulmonary Exam Cardiac Exam: Normal S1/S2 Heart Sounds Pulmonary Exam: Clear Bilateral Breath Sounds Implantable Cardiac Device Does patient have a Pacemaker or an ICD?: No Airway Exam Known Difficult Airway: No Mallampati Class: 3 Mouth Opening: Normal (> 3cm) Thyromental Distance: Greater than 3 cm Neck Range of Motion: Limited ROM Neck Circumference: Normal Teeth Condition: Normal Dentition ASA Classification ASA Score: ASA 2 Emergency Case?: No NPO Status NPO Status: NPO Clears >2 hours, Solids >8 hours Anesthesia Plan Resuscitation Status: Full Code Anesthesia Technique: Spinal Anesthesia Airway Planned: Natural Airway Monitors Used: Standard Monitors Preoperative Comments:: 60 yo female for right CHAI. Sig PMHx: vertigo, anxiety, proctocolectomy/ileostomy, never smoker, no etoh.
[2021-05-21 06:22] VITALS: BP 150/85; PULSE 88; RESP 16; TEMP 36.5; O2SAT 97
[2021-05-21] MEDS: Lactated Ringers 1,000 ML 80 ML IV (06:50)
[2021-05-21] MEDS: Celecoxib 200 MG CAP 400 MG PO (06:58)
[2021-05-21] MEDS: Acetaminophen 500 MG TAB 1000 MG PO (06:58)
--- NOTE | 2021-05-21 07:06 | W.PM.DSUDISC ---
Discharge Plan Disposition Patient Disposition: HOME Condition: Good Discharge Details Reason For Visit: Right Hip DJD Attending Provider: Jonathan Canas Primary Care Provider: Nisha Carter Home Meds and New Rx's Prescriptions: New acetaminophen 500 mg tablet 1,000 mg PO Q8H PRN (Reason: pain) Qty: 90 3RF aspirin 81 mg tablet,delayed release (DR/EC) 81 mg PO BID Qty: 60 0RF docusate sodium [Colace] 100 mg capsule 100 mg PO BID PRNQty: 10 0RF ibuprofen 600 mg tablet 600 mg PO TID PRN (Reason: pain) Qty: 90 3RF oxycodone 5 mg tablet 5 mg PO Q4H Qty: 10 0RF Continued potassium citrate [Urocit-K 15] 15 mEq tablet extended release 15 meq PO BID Qty: 180 3RF lorazepam 1 mg tablet 1 mg PO ONCE PRN (Reason: anxiety) Qty: 10 0RF Rx Instructions: Take 15-30min before dentist appt magnesium citrate 100 mg capsule 150 mg PO DAILY 0RF cholecalciferol (vitamin D3) 50 mcg (2,000 unit) capsule 50 mcg PO DAILY 0RF Changed omeprazole 10 mg Capsule,Delayed Release(Dr/Ec) 10 mg PO BID Qty: 60 0RF Discharge Instructions Additional Instructions: Total Hip Discharge Instructions Activity: The most important activity is to walk. You should try to take short walks a few times a day. You have no restrictions on movement or positioning, but do not try to force what you do. You will find some stiffness and weakness with hip flexion (lifting your knee). Do not try to strengthen this too early, continue to practice walking and stairs and this will come. - Outpatient physical therapy can be helpful to help return you to a normal gait and improve your flexibility and strength. This can start around 2 weeks. For some patients, it?s not necessary. Usually this is determined at the time of discharge or at the first post-operative visit. - You should wear the VANITA hose on both legs for 2 weeks. Dressing: Keep the surgical dressing in place for at least one week. After the first week it may be removed and replace with light gauze and tape or nothing. It may get wet after 3 days but avoid soaking the dressing. If it gets wet, just lightly pat dry. It is important to always keep some gauze between skin folds, especially when you are sitting. Spend some time with the wound exposed when you are lying flat as the incision does wrinkle onto itself. Medications: - You should take Tylenol and an anti-inflammatory Ibuprofen as your primary pain control medications. - You have been prescribed a stronger pain medication Oxycodone for breakthrough pain, take as needed as prescribed. - You should continue to take your stomach acid reduction agent Omeprazole to help reduce stomach acid and reflux. You should take Omeprazole twice a day while on Aspirin. - You will be taking Aspirin 81mg twice a day for DVT prevention unless instructed otherwise for 30 days. - If you have constipation you should take Colace or Miralax (both [id number]). It takes most people 3-4 days to have a bowel movement. Follow-up: 2 weeks If you have any acute concerns or questions, please do not hesitate to contact the office at [phone]. You may contact Dr. Canas with any questions after hours through the hospital at [phone] or on his cell phone at [phone]. Referrals: Jonathan Canas MD [ [facility] STAFF PHYSICIAN] - Equipment/Supplies: Walker Activity:: Activity as Tolerated Shower/Bathe:: Cover Diet:: As Tolerated Discharge Orders Discharge Orders: Discharge Order (Routine); Ordered 05/21/21 Ordered By: Jonathan Canas
[2021-05-21 07:22] VITALS: BMI 32.5
[2021-05-21] MEDS: ceFAZolin 2 GM/50 ML BAG IVPB (07:31)
[2021-05-21] MEDS: Ketorolac 30 MG/ML VIAL (08:04)
[2021-05-21] MEDS: Bupivacaine 0.25% Pres-Free 30 ML VIAL (08:06)
--- NOTE | 2021-05-21 08:29 | DI.RAD_ITS ---
Exam(s) XR HIP RT IN OR EXAM: XR HIP RT IN OR CLINICAL HISTORY: primary oa of right hip TECHNIQUE: 2D and realtime digital imaging was performed. CONTRAST MATERIAL: Refer to procedure report. COMPARISON: No exams were available for comparison FINDINGS: Fluoroscopy was provided for Dr. Canas during the performance of a right hip replacement. Please refer to the procedure report for complete details. Ka,r=3.62 mGy IMPRESSION: RADIATION DOSE DELIVERED:
--- NOTE | 2021-05-21 08:42 | W.PM.OP ---
Date of service: 05/21/21 Time of Service: 08:43 Operative Note Operative Note DATE OF PROCEDURE: 05/21/21 PRE-OP DIAGNOSIS: Right Hip Osteoarthritis POST-OP DIAGNOSIS: same PROCEDURE: Right Anterior Total Hip Arthroplasty with Intraoperative Navigation SURGEON: Jonathan Canas HAND ENGRAVER: Jeannie Erickson ANESTHESIA TYPE: Spinal Refer to Anesthesia Record ESTIMATED BLOOD LOSS: 300 PATHOLOGY: none sent COMPLICATIONS: None Patient was transported to: PACU Patient's condition: stable Implants: 1. Depuy Holly Acetabular Component, 52mm 2. Depuy Acetabular Liner, [id number] 3. Depuy Corail Standard Collared Femoral Stem, Size 13 4. Depuy Altrx Ceramic Femoral Head, Size 36+1.5mm Indications: I have seen Franca in clinic for symptoms of hip arthritis, confirmed with radiographic findings. She has exhausted nonoperative methods and was having significant limitations in daily function and desired better function and less pain. I discussed the technical details of a hip replacement. I explained the risks of the procedure to include, but not limited to, bleeding, infection, pain, stiffness, fracture, damage to nerves and vessels, damage to muscles and tendons, loosening, instability, leg length inequality, need for repeat procedure, blood clot and cardiopulmonary demise. Despite these risks, Franca elected to proceed. Findings: There was significant signs of arthritis throughout the hip with wear of the superior acetabulum and the femoral head with many neck osteophytes. Procedure Description: Franca was greeted in the preoperative holding area where the correct side was identified and marked. The consent was reviewed with the patient and signed. The history and physical was updated. All questions were answered. She was taken back to the operating room. A spinal anesthestic was then administered. The feet were wrapped with cast padding and Coban and then placed into the boot liners and then into the boots. Care was taken to protect the skin and make sure the heels were fully down and the boots were stable. The patient was then positioned onto the HANA table. Both legs were held in a neutral position. SCDs were applied. The patient was then slid down onto a peroneal post. Prophylactic antibiotics in the form of Cefazolin were administered. 1g of Tranxemic Acid was given intravenously within 30 minutes of incision. The stoma was taped out of the way onto the belly but without any tension. Then, the right leg was then prepped with Chloraprep and draped in a standard fashion. A second prep with Chloraprep was performed prior to placement of a shower-curtain type drape with Iodine impregnated skin protection. A timeout to confirm correct identity, side and site, procedure, allergies, anesthesia, and medical concerns was performed. An obliquely oriented incision was made starting lateral to the ASIS and running distal over the Tensor Fascia Li (TFL) muscle belly toward the fibular head, approximately 10cm. The skin and soft tissue was dissected sharply, through Leland?s fascia, and to the fascia of the TFL. With the fascia and superior border of the IT band identified, the fascia was incised with a new knife just above any perforators from the IT band. The TFL muscle belly was bluntly dissected away from the fascia and moved laterally. The fat between TFL and rectus was identified to ensure the dissection was not within the TFL. Blunt dissection created space between abductors and the capsule and retractor was placed over the lateral femoral neck. The fibers of the rectus femoris tendon were identified and these were freed from the anterior capsule. A second cobra retractor was placed around the medial femoral neck. The TFL was further retracted laterally to show the deep fascia. Careful dissection through this layer identified three main crossing vessels of the lateral femoral circumflex. These were cauterized in multiple locations and then cut without any noticeable bleeding. The TFL was further released bluntly from the deep fascia to expose anterior hip capsule and fat The Artemio orthopaedic retractor was then placed beneath the TFL and against sartorius and medial soft tissues to protect and retract the soft tissues. A T-capsulotomy was then performed starting at the superior lateral acetabulum and moving distally to the intertrochanteric ridge. These capsular flaps were tagged with a No. 1 Ethibond and elevated from within. The capsular flaps were released to the shoulder of the lateral neck and to the lesser trochanter to give excellent visualization of the proximal femur. A neck osteotomy was performed using an oscillating saw based on preoperative templates. This cut started in the shoulder and of the lateral neck and exited medially. The saw was at all times directed medially to avoid injury to the greater trochanter. Gross traction was applied to the leg and the osteotomy opened. The femoral head was removed with a corkscrew, making sure to protect the TFL on its exit. Traction was released after head removal. This was measured on the back table to determine the starting reamer size. Portions of the rectus obscuring visualization were minimally elevated off the superior acetabulum. An anterior retractor was placed over the anterior wall between capsule and labrum and attached to the Gripper retraction system. The femur was rotated to 90 degrees and medial capsule was fully released until the lesser trochanter was palpable and visible; the femur was returned to 30 degrees. A posterior retractor was placed similarly between capsule and labrum. This provided excellent visualization. The contents of the cotyloid fossa were removed with electrocautery and the labrum was removed with a knife. There was a notable floor osteophyte. There was significant chondromalacia of the superior acetabulum. Acetabular reaming began with a 46mm reamer. This first reaming was directed anterior to posterior and medial to get down to the true floor. This was inspected and reamed until the true floor was reached. The anterior retractor was then released and entry and exit was provided by traction on the capsular flaps. I then reamed sequentially up to a 52mm reamer where good fit was obtained. The larger reamers were oriented based on anatomical reference of the anterior and lateral gonzalez to ensure proper abduction and anteversion. Positioning and size was confirmed with the fluoroscopy. A 52mm Depuy Holly acetabular component was selected. The acetabulum was reamed around the periphery with the selected acetabular size to prevent a rim fit. The deep tissues were irrigated. The acetabular component was then impacted in a position of about 40-45 degrees of abduction and 15-20 degrees of anteversion, using the patient?s anatomy as the ultimate landmark. Fluoroscopy was used to confirm this. There was excellent local owner operator truck driver of the acetabular component and the inserting handle was removed. The acetabular liner, Depuy [id number] polyethylene liner, was inserted and lined up with the tines of the acetabular component. There was no soft tissue interposition. The liner was then impacted into position and confirmed to be well-seated. A portion of the cecilio-articular cocktail was then injected around the acetabulum into the capsule and periosteum. This cocktail consisted of 50cc of 0.25% Bupivicaine and 20cc of Exparel and 30mg of Ketorolac. The leg was rotated to 120 degrees. Any remaining medial capsule was released until the lesser trochanter was easily palpable. A retractor was placed medially. The lateral capsule was further released into the shoulder to allow access to the greater trochanter. A Saldivar retractor was placed over the greater trochanter which allowed the trochanter to flip in front of the capsule for excellent exposure. The leg was brought down into maximal extension and 20 degrees of adduction while ensuring there was no impingement on the acetabulum. Any remnant capsule within the trochanter was released. Piriformis and obturator externis were identified and protected. There was excellent access to the proximal femur. The lateral neck remnant was removed with a rongeur. A blunt canal probe was used to identify the canal and trajectory for later broaching. A box osteotome initiated the broach course. A small curved rasp and a curved curette were used to work laterally. Broaching then began with a size 8 Corail broach. This was inserted manually around the trochanter and into the canal before mallet blows. The broach was seated to a few millimeters below the cut level based on the neck cut and the preoperative template. Sequential broaching was continued with the Collabspotse pneumatic broaching device until a tight fit was obtained with good rotational control of the femur. A trial standard neck was inserted along with a +1.5 trial head. The leg was brought out of extension and adduction and then reduced with traction and internal rotation. The leg was stable anteriorly in a position of 30 degrees of extension and 90 degrees of external rotation. Fluoroscopy was used to ensure there was no fracture and the stem was seated well. Leg lengths were checked with an AP pelvis and pelvic reference points. [employer] navigation system was used to confirm appropriate positioning and leg length and offset. No changes were necessary. Once content with the desired offset and leg lengths, the leg was brought back into extension, external rotation and adduction. The periosteum and surrounding tissue was injected with remaining portion of the cecilio-articular cocktail. The proximal femur was irrigated as well as the deep tissues. The Depuy Corail standard collared stem, size 13, was then manually inserted into the proximal femur making sure to control rotation. It was then malleted into position with light blows, giving breaks to allow bone expansion and decrease risk of fracture. The selected Depuy Altrx Ceramic Head, size 36+1.5mm, was then placed onto the clean and dry trunnion and secured with impaction onto the tapered fit. The leg was brought back out of extension and adduction and reduced with traction and internal rotation. Stability was confirmed with no shuck at 90 degrees of external rotation and 30 degrees of extension. No impingement through range of motion arc. Final x-ray images were obtained with fluoroscopy to confirm adequate positioning and no intraoperative fracture. The deep tissues were thoroughly irrigated with Irrisept chlorhexadine solution. The capsule was then reapproximated with the previously placed Ethibond sutures. The TFL fascia was finally closed with a No. 2 Stratafix, barbed suture. Deep tissues were then reapproximated with 0 Vicryl and a running 2-0 Vicryl. The skin was closed with a running 4-0 Monocryl in a subcuticular fashion. This was reinforced with skin glue. A Mepilex silver dressing was applied. At the end of the case, all counts were correct. Franca was transferred to the hospital bed without difficulty and suffering no apparent complication. She has a good prognosis. Physical therapy will start today and without restrictions, weight-bearing as tolerated. Aspirin 81mg BID will be used for DVT prophylaxis.
[2021-05-21 08:57] VITALS: BP 108/48; PULSE 89; RESP 16; TEMP 36.4; O2SAT 94
[2021-05-21 09:02] VITALS: BP 121/71; PULSE 78; RESP 14; TEMP 36.4; O2SAT 93
[2021-05-21 09:07] VITALS: BP 108/66; PULSE 76; RESP 14; TEMP 36.4; O2SAT 93
[2021-05-21 09:28] VITALS: BP 118/78; PULSE 62; RESP 16; TEMP 36.2; O2SAT 99
--- NOTE | 2021-05-21 09:44 | W.ANESPOSTOP ---
Postoperative Evaluation Date, Time and Location Date Performed: 05/21/21 Time Performed: 09:44 Patient Location: Day Surgery Unit Vital Signs Most Recent Imported Vital Signs: Most Recent Vital Signs Temp Pulse Resp BP Pulse Ox 36.4 C L 76 14 108/66 93 05/21/21 09:07 05/21/21 09:07 05/21/21 09:07 05/21/21 09:07 05/21/21 09:07 Pain Score Most Recent Pain Score: Most Recent Pain Score Pain Level 0 05/21/21 09:07 Assessment Mental Status: Awake (Alert & Oriented to Patient Baseline) Airway and Respiratory Function: Patent airway with normal (patient baseline) respiratory exam Cardiovascular Function: Hemodynamically Stable Hydration Status: Adequately Hydrated Nausea & Vomiting: No Nausea or Vomiting Pain: Pain is tolerable per patient Peripheral Nerve Block: Patient did not receive a nerve block
[2021-05-21 10:05] VITALS: BP 125/73; PULSE 72; RESP 16; TEMP 36.2; O2SAT 96
--- NOTE | 2021-05-21 10:40 | PT.INIE ---
Date of service: 05/21/21 Time of Service: 10:40 PT Notes Visit Reasons: Right Hip DJD Physical Therapy Day Surgery Initial Evaluation Date: 05/21/2021 Referring Doctor: Jonathan Canas MD PT Orders: PT CONSULT: Status post Ortho surgery. Status post right CHAI. Precautions: WBAT on right LE with AD. Patient Profile/Admitting Diagnosis: Franca is a 60-year-old female with primary unilateral osteoarthritis of the right status post right total hip arthroplasty on postoperative day 0. PMHX: Medical History? Basal cell carcinoma of chest Basal cell carcinoma of right side of nose Ulcerative colitis S/p total proctocolectomy and ileostomy Surgical History? Hx of ileostomy (05/14/98) S/P proctocolectomy (05/14/98) Total proctocolectomy with ileostomyS/P tonsillectomy Status post Mohs surgery Social History/Home Situation: Lives with her significant other who is himself recovering from previous surgery but patient states that her daughter will be with her for the whole week to provide assistance with whatever she needs at home. Has 2 steps to enter with a rail on the right side. Equipment Owned/DME: [facility], [facility] Subjective: Agreeable to PT consult. States that she has had a vertigo in the past. Reports 2/10 pain in the right hip that subsided with mobility performance. Did not report any vertiginous symptoms throughout session. Objective: General Observation: Mepilex Ag over surgical incision. IV access through right UE. TEDS in B legs. Cold pack over right hip Mental Status: Alert and oriented x4 Pain: 2/10 pain in the right hip ROM: Right Lower Extremity: Hip flexion WFL. Hip abduction WFL. Knee flexion WFL. Ankle dorsiflexion WFL. Ankle plantarflexion WFL. Left Lower Extremity: Hip flexion WFL. Hip abduction WFL. Knee flexion WFL. Ankle dorsiflexion WFL. Ankle plantarflexion WFL. Strength: Right Lower Extremity: Hip flexors 4/5. Hip abductors 4/5. Knee flexors 5/5. Knee extensors 4/5. Ankle dorsiflexors 5/5. Ankle plantarflexors 5/5. Left Lower Extremity:Hip flexors 5/5. Hip abductors 5/5. Knee flexors 5/5. Knee extensors 5/5. Ankle dorsiflexors 5/5. Ankle plantarflexors 5/5. Sensation: Intact as to pain and light touch in bilateral lower extremities Bed Mobility/Transfers: Supine to sit standby assist Sit to stand contact-guard assist Stand to sit standby assist Bed to chair standby assist Gait: 150 feet above level surface ambulation using front wheeled walker with step through gait pattern requiring only contact-guard assist with report of decreased pain in the right hip. Denies headache, chest pain, and vertigo throughout session. Balance: Static Sitting: Normal Dynamic Sitting: Normal Static Standing: Fair Dynamic Standing: Fair Special Tests: Mobility Limitations Standardized Measure [facility] AM-PAC 6 clicks Basic Mobility Inpatient Short Form: Raw Score: 22 CMS Score: 21% deficit Informed Consent/Education: Patient instructed in purpose of PT consult. Education and training on initial set of exercises that can be done at home have been completed with patient woith reference to the [employer] cresencio. Assessment: Franca demonstrates functional mobility decline requiring the use of a front wheeled walker to maximize independence and reduce fall risk ensuring mobility ADL performance. She will have the support of her daughter for the whole week as she recovers at home. Patient presents with clinical signs and symptoms consistent with current/admitting diagnoses that have resulted to mobility limitations, gait instability, generalized weakness, and impairment of motor control as demonstrated by the following impairment level findings: 1. Decreased strength to right hip major muscle groups 2. Impaired standing balance Impairments are contributing to the following functional limitations: 1. Inability to safely ambulate without assistive device 2. Increase completion time for mobility ADL performance 3. Increased fall risk Patient is assessed as a 91188 moderate complexity based on the following: History: 60-year-old female with impairment level findings, functional limitations, and past medical history as indicated above Examination: Demonstrable impairment in strength, balance, and mobility level with underlying impairments and functional limitations as documented above Presentation: Evolving Decision Makin moderate complexity Goals: N/A. PT evaluation and 1-2 treatment sessions only for functional mobility training using recommended AD and for HEP instruction. Plan of Care/Treatment Plan: N/A. PT evaluation and 1-2 treatment session only for functional mobility training using recommended AD and for HEP instruction. DISCHARGE RECOMMENDATIONS: Home when medically cleared by orthopedic surgeon. Will benefit from outpatient PT services in order to facilitate return to independent community ambulation and full ADL performance without an assistive device. TREATMENT CODE/TIME: 07947 x 25 minutes beginning at 10:40 AM Thank you for the opportunity to participate in the care of this patient. Ninoska Diaz PT, DPT, CLT [facility] [place], [place]
== END 2021-05-21 11:43 | disposition home or self-care (01) ==
PROVIDERS: PCP Nurse Practitioner Family; Visit Provider Student in an Organized Health Care Education/Training Program
PROC: (CPT 27130; principal; 2021-05-21 07:30)
DX: M16.11 Unilateral primary osteoarthritis, right hip (principal); R73.03 Prediabetes; F41.0 Panic disorder [episodic paroxysmal anxiety]; E78.5 Hyperlipidemia, unspecified
CPT/HCPCS: 27130; 20985; 97162; 73501; J0690; J1100; J1885; J2250; J2405; J2704

== ENCOUNTER 2021-05-31 10:30 | Outpatient (CLI) | payer OTHER, SELFPAY ==
--- NOTE | 2021-05-31 10:15 | DI.RAD_ITS ---
Exam(s) XR HIP RT COMPLETE AP PELVIS EXAM: XR HIP RT COMPLETE AP PELVIS INDICATION: R CHAI. COMPARISON: CR XR PELVIS AP from 05/03/2021 XA XR HIP RT IN OR from 05/21/2021 TECHNIQUE: 2D digital imaging was performed. Two views FINDINGS: There has been no change in the alignment of the right hip prosthesis compared with the intraoperativ e images. Degenerative changes of the left hip are noted. A right lower quadrant ostomy is seen. DATA REPOSITORY: RADIATION DOSE DELIVERED:
== END 2021-05-31 10:31 | disposition home or self-care (01) ==
LOC: DIORS 10:31
PROVIDERS: PCP Nurse Practitioner Family; Referring Provider Nurse Practitioner Family; Visit Provider Physician Assistant
DX: Z96.641 Presence of right artificial hip joint (principal); M16.12 Unilateral primary osteoarthritis, left hip; Z47.1 Aftercare following joint replacement surgery
CPT/HCPCS: 73502

== ENCOUNTER 2022-05-23 10:57 | Outpatient (CLI) | payer OTHER, SELFPAY ==
--- NOTE | 2022-05-23 09:45 | DI.RAD_ITS ---
Exam(s) XR HIP RT AP LAT ONLY EXAM: XR HIP RT AP LAT ONLY CLINICAL HISTORY: annual f/u R CHAI. TECHNIQUE: 2D digital imaging was performed. COMPARISON: CR XR HIP RT COMPLETE AP PELVIS from 05/31/2021 FINDINGS: Two views: There is continued stable appearance of DISH of the components of the right hip prosthesis. No fract ures nor loosening evident. IMPRESSION: Stable satisfactory appearance. DATA REPOSITORY: RADIATION DOSE DELIVERED:
== END 2022-05-23 10:58 | disposition home or self-care (01) ==
LOC: DIORS 10:57
PROVIDERS: PCP Nurse Practitioner Family; Referring Provider Nurse Practitioner Family; Visit Provider Student in an Organized Health Care Education/Training Program
DX: Z96.641 Presence of right artificial hip joint (principal); Z47.1 Aftercare following joint replacement surgery
CPT/HCPCS: 73502

== ENCOUNTER 2022-06-06 00:29 | Outpatient (CLI) | payer OTHER, SELFPAY ==
--- NOTE | 2022-06-06 08:30 | DI.MAMMO_ITS ---
Exam(s) MAMMO SCREENING EXAM: MAMMO SCREENING CLINICAL HISTORY: screening,Z12.39. TECHNIQUE: Bilateral full field digital CC and MLO mammographic images were obtained with 3D tomosyn thesis and utilizing computer aided detection (CAD). COMPARISON: Prior mammograms were reviewed. FINDINGS: No new significant findings in the right breast. In the left breast on the MLO 3D view there is a new nodular density located laterally but appearing deeper than the scan, this measuring 5 x 5 mm and located approximately 8 cm in from the nipple on th e MLO view. There are no malignant-appearing microcalcification groups in this region or elsewhere i n either breast. No new significant architectural distortion or skin thickening-traction. There is no significant architectural distortion nor skin thickening-retraction. IMPRESSION: 1. No radiographic evidence of malignancy in the right breast. 2. New asymmetric density-possible nodule located laterally in left breast. Spot compression MLO vie w and ultrasound recommended. BI-RADS Category 0 - Assessment Incomplete: Need additional imaging evaluation Breast Density - Category B - Scattered areas of fibroglandular density Breast density Category C or D implies that the patient has dense breast tissue. Dense breast tissue can make it harder to find cancer on a mammogram. Dense breast tissue is also associated with an incr eased risk of breast cancer. This information about the result of the mammogram report was provided to the patient to raise their awareness. Use this report when you speak with the patient about their risks for breast cancer, which includes their family history. At that time, you may recommend additional screening tests (Ultrasoun d or MRI) as these tests may add significant information. A negative radiographic report should not delay biopsy if a dominant or clinically suspicious mass is present. Up to ten percent of cancers are not identified on mammography. A negative report may reinforce clinical impression. Adenosis and dense breasts may obscure an underlying neoplasm. False positive reports average 6 to 10%. Patient will receive a letter notifying them of these results.
== END 2022-06-06 00:49 ==
LOC: DI 00:29
PROVIDERS: PCP Nurse Practitioner Family; Visit Provider Nurse Practitioner Family
DX: Z12.31 Encounter for screening mammogram for malignant neoplasm of breast (principal)
CPT/HCPCS: 77063; 77067

== ENCOUNTER 2022-06-16 01:03 | Outpatient (CLI) | payer OTHER, SELFPAY ==
--- NOTE | 2022-06-16 | DI.US_ITS ---
Exam(s) MG MAMMO SCREEN CALL BACK UNI US BREAST LT LIMITED EXAM: MG MAMMO SCREEN CALL BACK UNI and U/S breast LT limited CLINICAL HISTORY: ASYMMETRIC DENSITY POSSIBLE NODULE LEFT BREAST R92.8 ABNL MAMMO. TECHNIQUE: Craniocaudal and mediolateral oblique Full Field Digital Mammography views of the left br east with Computer Aided Diagnosis followed by Tomosynthesis and left breast ultrasound. COMPARISON: Comparison is made with prior examinations. FINDINGS: Mammography/Tomosynthesis: Masses/Architectural Distortion: The well-circumscribed nodule in the upper central left breast has b een seen on prior examination and is unchanged in size. No suspicious masses or areas of architectur al distortion are seen on the additional view. Microcalcifictions: No suspicious pleomorphic-type are seen. Skin Thickening/Nipple Retraction: None. Limited left breast US: Echotexture: Normal appearance of the glandular tissue. Shadowing: No suspicious foci. Cyst: None. Solid lesions: There is a 0.7 x 0.2 cm renal form shape hypoechoic nodule at the 1 o'clock position o f the left breast 8 cm from the nipple suspicious, sonographically, for a lymph node. No suspicious masses are seen sonographically. Ductal dilation: None. IMPRESSION: 1. No evidence of malignancy is noted. 2. Unless there is more urgent need, follow-up screening mammography is recommended, as per [place] [employer] guidelines. 3. The findings were discussed with the patient on the date of the examination. BI-RADS Category 2 - Benign Findings Breast Density - Category B - Scattered areas of fibroglandular density Breast density Category C or D implies that the patient has dense breast tissue. Dense breast tissue can make it harder to find cancer on a mammogram. Dense breast tissue is also associated with an incr eased risk of breast cancer. This information about the result of the mammogram report was provided to the patient to raise their awareness. Use this report when you speak with the patient about their risks for breast cancer, which includes their family history. At that time, you may recommend additional screening tests (Ultrasoun d or MRI) as these tests may add significant information. A negative radiographic report should not delay biopsy if a dominant or clinically suspicious mass is present. Up to ten percent of cancers are not identified on mammography. A negative report may reinforce clinical impression. Adenosis and dense breasts may obscure an underlying neoplasm. False positive reports average 6 to 10%. Patient will receive a letter notifying them of these results.
== END 2022-06-16 01:23 ==
LOC: DI 01:03
PROVIDERS: PCP Nurse Practitioner Family; Visit Provider Nurse Practitioner Family
DX: R92.8 Other abnormal and inconclusive findings on diagnostic imaging of breast (principal)
CPT/HCPCS: 76642; 77063; 77067

== ENCOUNTER 2022-06-28 02:46 | Outpatient (CLI) | payer OTHER, SELFPAY ==
[2022-06-28 11:44] LABS: Anion Gap 8.1 mmol/L (3-11); BUN 20 mg/dL (7-18); CO2 28.9 mmol/L (21.0-32.0); CREATININE 1.1 mg/dL (0.55-1.02); Calcium 9.2 mg/dL (8.5-10.1); Chloride 102 mmol/L (98-107); Estimated GFR 56.46 (mL/min/1.73m2); Glucose 102 mg/dL (74-106); Potassium 4.4 mmol/L (3.5-5.1); Sodium 139 mmol/L (136-145)
== END 2022-06-28 02:47 | disposition home or self-care (01) ==
PROVIDERS: PCP Nurse Practitioner Family; Visit Provider Nurse Practitioner Family
DX: R73.03 Prediabetes (principal); F41.8 Other specified anxiety disorders; N18.30 Chronic kidney disease, stage 3 unspecified; E78.5 Hyperlipidemia, unspecified
CPT/HCPCS: 36415; 80048; 83036

== ENCOUNTER 2022-06-28 12:36 | Outpatient (REF) | payer OTHER, SELFPAY ==
--- NOTE | 2022-06-28 10:30 | PAPFT_PTH ---
PATIENT: Franca Mccord LOC: [facility] U#:[id number] AGE/SX: 61/F ROOM: RE06/28/[address]: Alexus Amaro NP : 1960 BED: DIS: 06/28/2022 SPEC #: [id number] RECD: 06/28/22 13:13 STATUS: VALORIE REMyranda #: [id number] ATVAR: 06/28/22 10:[address]: Sondra CRYSTAL,Alexus DEPT: [facility] Cytology RECD BY: Vivi Gooden ENTERED: 06/28/22 13:14 SP TYPE: PAPFT OTHR DR: Nisha Carter, PREFLIGHT INSPECTOR Tissues: 1 - CX/ENDOCX FOR PAP SMEARS Procedures: PAP THIN PREP/UVM Screening HPV DNA PROBE Comments: [id number]
== END 2022-06-28 12:37 | disposition home or self-care (01) ==
LOC: LBN 12:36
PROVIDERS: PCP Nurse Practitioner Family; Visit Provider Nurse Practitioner Women's Health
DX: Z12.4 Encounter for screening for malignant neoplasm of cervix (principal); Z11.51 Encounter for screening for human papillomavirus (HPV)
CPT/HCPCS: 88142; 87624

== ENCOUNTER 2024-12-26 11:29 | Outpatient (CLI) | payer MEDICARE, SELFPAY ==
--- NOTE | 2024-12-26 10:45 | DI.RAD_ITS ---
Exam(s) XR HIP LT COMPLETE AP PELVIS EXAM: XR HIP LT COMPLETE AP PELVIS CLINICAL HISTORY: L HIP PAIN. TECHNIQUE: 2D digital imaging was performed of the left hip. Two views were obtained. AP pelvis and lateral left hip views were obtained. COMPARISON: CR XR HIP RT COMPLETE AP PELVIS from 05/31/2021 CR XR HIP RT AP LAT ONLY from 05/23/2022 FINDINGS: BONES: No acute fracture is present. No bony destructive lesion is seen. JOINTS: No dislocation present. There again seen advanced degenerative changes in the left hip with bone on bone in the superior joint space and osteophytes seen in both the acetabulum and the femoral head. There is an old right total hip arthroplasty. SOFT TISSUE: Normal. IMPRESSION: Marked degenerative changes in the left hip. DATA REPOSITORY: RADIATION DOSE DELIVERED:
== END 2024-12-26 11:30 | disposition home or self-care (01) ==
LOC: DIORS 11:29
PROVIDERS: PCP Nurse Practitioner Family; Referring Provider Nurse Practitioner Family; Visit Provider Student in an Organized Health Care Education/Training Program
DX: M16.12 Unilateral primary osteoarthritis, left hip (principal)
CPT/HCPCS: 99214; 73502

== ENCOUNTER 2025-01-02 07:53 | Outpatient (CLI) | payer MEDICARE, SELFPAY ==
--- NOTE | 2025-01-02 07:45 | RT.EKG_ITS ---
APPROVED REPORT Exam: Resting ECG Reason for Exam: pre op Patient Location: O HR:69 bpm ECG Measurements Heart Rate 69 AXIS NM 193 P 9 QRSd 86 QRS -6 QT 411 T 23 QTc 441 Conclusion Sinus rhythm...normal P axis, V-rate 50- 99 Normal Electrocardiogram
== END 2025-01-02 07:54 | disposition home or self-care (01) ==
LOC: DI.CM 07:54
PROVIDERS: PCP Nurse Practitioner Family; Visit Provider Nurse Practitioner Family
DX: Z01.818 Encounter for other preprocedural examination (principal)
CPT/HCPCS: 93010

== ENCOUNTER 2025-01-07 03:36 | Outpatient (CLI) | payer MEDICARE, SELFPAY ==
[2025-01-07 09:50] LABS: Abs Immature Grans 0.01 10^3/uL (0.0-0.06); HCT 47.3 % (36.0-46.0); HGB 15.2 g/dL (11.2-15.7); Immature Grans % 0.2 %; MCH 27.1 pg (27.0-33.0); MCHC 32.1 % (32.0-36.0); MCV 85 fL (80-95); MPV 10.3 fL (8.0-11.0); Platelet Count 254 10^3/uL (130-400); RBC 5.60 10^6/uL (3.93-5.22); RDW 14.6 % (11.7-14.6); RDW-SD 45.0 fL; WBC 6.57 10^3/uL (4.4-10.8)
[2025-01-07 09:52] LABS: Glucose Negative (Negative)
[2025-01-07 09:58] LABS: C & S Indicated? No; WBC 0-2 HPF (0-5)
[2025-01-07 10:51] LABS: Iron 104 ug/dL (50-170); Total Iron Binding Capacity 280 ug/dL (250-425)
[2025-01-07 13:48] LABS: Microalb ug/mg Crea 9.8 ug/mg Cr
[2025-01-07 13:49] LABS: Prot/Crea Ur Ratio 0.16 mg/mg Cr
[2025-01-07 14:18] LABS: Hemoglobin A1C 5.9 % (<5.7)
[2025-01-07 15:36] LABS: Ferritin 191 ng/mL (7-271); Vitamin D 25 Total 60 ng/mL (30-100)
[2025-01-07 15:45] LABS: ALT 35 U/L (10-49); AST 22 U/L (<34); Albumin 4.6 g/dL (3.4-5.0); Alkaline Phosphatase 103 U/L (46-116); Anion Gap 11.3 mmol/L (3-11); BUN 17 mg/dL (9-23); Bilirubin, Total 0.60 mg/dL (0.2-1.2); CO2 23.7 mmol/L (20.0-31.0); Calcium 9.5 mg/dL (8.3-10.6); Chloride 103 mmol/L (98-107); Cholesterol 279 mg/dL (<200); Glucose 97 mg/dL (74-106); HDL Cholesterol 63 mg/dL (>40); Potassium 4.5 mmol/L (3.5-5.1); Sodium 138 mmol/L (136-145); Total Protein 7.6 g/dL (5.7-8.2)
[2025-01-07 19:22] LABS: HIV-1/2 Ag & Ab Screen Negative (Negative)
[2025-01-07 19:23] LABS: HBs Antibody, Quant <3.1 mIU/mL (See Note); Hepatitis B Surface Antigen Negative (Negative)
[2025-01-07 19:26] LABS: Hepatitis C Ab w Rflx HCV PCR Negative (Negative)
[2025-01-08 12:13] LABS: Albumin 60.2 % (55.8-66.1); Albumin g/dL 4.7 g/dL (3.6-5.2); Alpha 1 g/dL 0.30 g/dL (0.15-0.40); Alpha 2 g/dL 0.70 g/dL (0.50-1.00); Beta g/dL 1.00 g/dL (0.60-1.20); Gamma g/dL 1.10 g/dL (0.60-1.60); Total Protein 7.8 g/dL (6.3-8.2)
[2025-01-08 16:59] LABS: Cystatin C, S 0.99 mg/L
== END 2025-01-07 03:37 | disposition home or self-care (01) ==
LOC: LBO 03:36
PROVIDERS: PCP Nurse Practitioner Family; Visit Provider Nurse Practitioner Family
DX: N18.30 Chronic kidney disease, stage 3 unspecified (principal); Z11.59 Encounter for screening for other viral diseases; R73.03 Prediabetes; E78.5 Hyperlipidemia, unspecified; Z11.4 Encounter for screening for human immunodeficiency virus [HIV]
CPT/HCPCS: 36415; 80053; 80061; 82306; 82610; 86704; 86706; 86803; 87340; 87389; 81003; 81015; 82043; 82565; 82570; 82728; 83036; 83540; 83550; 83970; 84156; 84165; 85025

== ENCOUNTER → 2025-01-20 03:52 | Outpatient (CLI) | payer MEDICARE, SELFPAY ==
--- NOTE | 2025-01-20 06:45 | DI.US_ITS ---
Exam(s) US RENAL EXAM: US RENAL CLINICAL HISTORY: monitoring renal calculi,n20.0 TECHNIQUE: Ultrasound of both kidneys performed using standard protocol. COMPARISON: US US RENAL from 01/26/2024 FINDINGS: RIGHT KIDNEY: Measures 12 cm in length. No cysts evident. Normal cortical thickness and corticomedullary differentiation .No solid masses No intrarenal calculi nor hydronephrosis. LEFT KIDNEY: Measures 11.6 cm in length. No cysts evident. Normal cortical thickness and corticomedullary differentiaion. No solids masses. No intrarenal calculi nor hydonephrosis. URINARY BLADDER: Prevoid volume is 164 cc Postvoid volume is 0 cc No evidence of bladder mass nor diverticuli. Ureterovesical jets: Both identified and appear symmetrical IMPRESSION: 1. No significant focal ultrasound findings in the kidneys. Also no hydronephrosis. 2. The previously described possible calculi seen in the right kidney on the ultrasound of January 2024 is not visible on the present images. DATA REPOSITORY:
== END ==
LOC: DI 03:52
PROVIDERS: PCP Nurse Practitioner Family; Visit Provider Nurse Practitioner Gerontology
DX: N20.0 Calculus of kidney (principal)
CPT/HCPCS: 76770

== ENCOUNTER → 2025-01-22 01:11 | Outpatient (CLI) | payer MEDICARE, SELFPAY ==
--- NOTE | 2025-01-22 09:00 | DI.MAMMO_ITS ---
Exam(s) MAMMO SCREENING EXAM: MAMMO SCREENING CLINICAL HISTORY: screening,z12.39 TECHNIQUE: Bilateral full field digital CC and MLO mammographic images were obtained with 3D tomosynthesis and utilizing computer aided detection (CAD). COMPARISON: Comparison is made with prior examinations. FINDINGS: Masses/Architectural Distortion: No suspicious masses or areas of architectural distortion are present. There are well-circumscribed bilateral breast nodules. Microcalcifications: No suspicious pleomorphic-type are seen. Skin Thickening/Nipple Retraction: None. IMPRESSION: 1. No significant interval change with no specific features of malignancy noted. 2. Unless there is more urgent need, screening mammography is recommended, as per [employer] guidelines. BI-RADS Category 2 - Benign Findings Breast Density - Category B - There are scattered areas of fibroglandular density. Breast density Category C or D implies that the patient has dense breast tissue. Dense breast tissue can make it harder to find cancer on a mammogram. Dense breast tissue is also associated with an increased risk of breast cancer. This information about the result of the mammogram report was provided to the patient to raise their awareness. Use this report when you speak with the patient about their risks for breast cancer, which includes their family history. At that time, you may recommend additional screening tests (Ultrasound or MRI) as these tests may add significant information. A negative radiographic report should not delay biopsy if a dominant or clinically suspicious mass is present. Up to ten percent of cancers are not identified on mammography. A negative report may reinforce clinical impression. Adenosis and dense breasts may obscure an underlying neoplasm. False positive reports average 6 to 10%. Patient will receive a letter notifying them of these results.
--- NOTE | 2025-01-22 09:00 | DI.DEXA_ITS ---
Exam(s) XR DEXA BONE DENSITY W/WO NGOC EXAM: XR DEXA BONE DENSITY W/WO NGOC CLINICAL HISTORY: osteoporosis screening,postmenopausal status,z78.0 TECHNIQUE: Routine DEXA evaluation of the lumbar spine, hip, or forearm. COMPARISON: No exams were available for comparison FINDINGS: Performed on a Hologic unit. Lateral image: No compression fracture evident. Lumbar Spine total T-score: 1.4 which is in normal range. Hip total T-score:-1.2 which is osteopenia range Independent reading at the level of the femoral neck yields T-score of -1.4 which is osteopenia range. Forearm total T-score: 0.1 which is normal range. IMPRESSION: Bone mineral density measures in the osteopenia range for the hip. Fracture risk is moderate. Bone mineral density measures in normal range for the forearm and lumbar spine. Fracture risk at these levels is low. Note: Any spine fracture indicates 5x risk for subsequent spine fracture and 2x risk for subsequent hip fracture. World Health Organization criteria for BMD interpretation classify patients: Normal...... T- Score at or above -1.0 Osteopenic... T- Score between -1.0 and -2.5 Osteoporosis... T-Score at or below -2.5
== END ==
LOC: DI 01:11
PROVIDERS: PCP Nurse Practitioner Family; Visit Provider Nurse Practitioner Family
DX: Z78.0 Asymptomatic menopausal state (principal); Z12.31 Encounter for screening mammogram for malignant neoplasm of breast
CPT/HCPCS: 77063; 77067; 77080

== ENCOUNTER 2025-01-28 01:25 | Outpatient (CLI) | payer MEDICARE, SELFPAY ==
[2025-01-28 12:16] LABS: HCT 48.4 % (36.0-46.0); HGB 15.5 g/dL (11.2-15.7); MCH 27.5 pg (27.0-33.0); MCHC 32.0 % (32.0-36.0); MCV 86 fL (80-95); MPV 10.8 fL (8.0-11.0); Platelet Count 233 10^3/uL (130-400); RBC 5.63 10^6/uL (3.93-5.22); RDW 14.6 % (11.7-14.6); RDW-SD 46.2 fL; WBC 9.13 10^3/uL (4.4-10.8)
[2025-01-28 12:39] LABS: Anion Gap 7.5 mmol/L (3-11); BUN 15 mg/dL (9-23); CO2 26.5 mmol/L (20.0-31.0); Calcium 9.3 mg/dL (8.3-10.6); Chloride 103 mmol/L (98-107); Glucose 102 mg/dL (74-106); Potassium 4.5 mmol/L (3.5-5.1); Sodium 137 mmol/L (136-145)
== END 2025-01-28 01:26 | disposition home or self-care (01) ==
LOC: LBO 01:25
PROVIDERS: PCP Nurse Practitioner Family; Visit Provider Student in an Organized Health Care Education/Training Program
DX: Z01.818 Encounter for other preprocedural examination (principal); M16.12 Unilateral primary osteoarthritis, left hip
CPT/HCPCS: 36415; 80048; 85027

== ENCOUNTER → 2025-02-03 14:23 | Outpatient (BNVA) | payer MEDICARE, SELFPAY | PROVIDERS: PCP Nurse Practitioner Family; Referring Provider Nurse Practitioner Family; Visit Provider Nurse Practitioner Gerontology | DX: N20.0 Calculus of kidney (principal) | CPT/HCPCS: 99213; 51798 ==

== ENCOUNTER 2025-02-05 08:19 | Day surgery (SDC) | payer MEDICARE, SELFPAY ==
[2025-02-05] VITALS (15 sets, daily range): BP systolic 100–160; BP diastolic 48–80; PULSE 58–81; RESP 13–17; TEMP 36.1–36.7; O2SAT 91–99; BMI 30.7
--- NOTE | 2025-02-05 07:29 | W.PM.DSUDISC ---
Date of service: 02/05/25 Discharge Plan Disposition Patient Disposition: Home Condition: Good Discharge Details Reason For Visit: L THR Attending Provider: Jonathan Canas Primary Care Provider: Nisha Carter Home Meds and New Rx's Prescriptions: New celecoxib 200 mg capsule 200 mg PO BID Qty: 60 0RF aspirin 81 mg tablet,delayed release (DR/EC) 81 mg PO BID Qty: 60 0RF acetaminophen 500 mg tablet 1,000 mg PO TID Qty: 90 3RF pantoprazole 40 mg tablet,delayed release (DR/EC) 40 mg PO DAILY Qty: 14 0RF dexamethasone 4 mg tablet 4 mg PO DAILY Qty: 2 0RF docusate sodium 100 mg capsule 100 mg PO BID PRNQty: 28 0RF oxycodone 5 mg tablet 5 mg PO Q4H MDD 6 tabs PRN (Reason: pain) Qty: 12 0RF Continued potassium citrate [Urocit-K 15] 15 mEq tablet extended release 15 meq PO BID Qty: 180 3RF multivitamin Tablet 1 tab PO DAILY lorazepam 1 mg tablet 1 mg PO ONCE PRN (Reason: anxiety) Qty: 10 0RF Rx Instructions: Take 15-30min before dentist appt magnesium citrate 100 mg capsule 150 mg PO DAILY cholecalciferol (vitamin D3) 50 mcg (2,000 unit) capsule 50 mcg PO DAILY irbesartan 75 mg tablet 75 mg PO DAILY Qty: 90 3RF Discharge Instructions Additional Instructions: Total Hip Discharge Instructions Activity: The most important activity is to walk. You should try to take short walks a few times a day. You have no restrictions on movement or positioning, but do not try to force what you do. You will find some stiffness and weakness with hip flexion (lifting your knee). Do not try to strengthen this too early, continue to practice walking and stairs and this will come. - Outpatient physical therapy can be helpful to help return you to a normal gait and improve your flexibility and strength. This can start around 2 weeks. For some patients, it?s not necessary. Usually this is determined at the time of discharge or at the first post-operative visit. - You should wear the VANITA hose on both legs for 2 weeks. Dressing: Keep the surgical dressing in place for at least one week. After the first week it may be removed and replace with light gauze and tape or nothing. It may get wet after 3 days but avoid soaking the dressing. If it gets wet, just lightly pat dry. It is important to always keep some gauze between skin folds, especially when you are sitting. Spend some time with the wound exposed when you are lying flat as the incision does wrinkle onto itself. Medications: - You should take Tylenol and an anti-inflammatory Celebrex as your primary pain control medications. If the Celebrex is too expensive or not covered, please call the office for another alternative (Advil/Ibuprofen or Naproxen/Aleve). - You have been prescribed a stronger pain medication Oxycodone for breakthrough pain, take as needed as prescribed. - You have also been prescribed a stomach acid reduction agent Pantoprozole to help reduce stomach acid and reflux. - You have also been prescribed Decadron to help with post-operative nausea and pain. You will take this for two days starting tomorrow. - You will be taking Aspirin 81mg twice a day for DVT prevention unless instructed otherwise. - If you have constipation you should take Colace or Miralax (both [id number]). It takes most people 3-4 days to have a bowel movement. Follow-up: 2 weeks If you have any acute concerns or questions, please do not hesitate to contact the office at [phone]. You may contact Dr. Canas with any questions after hours through the hospital at [phone] or on his cell phone at [phone]. Stand Alone Forms: Anesthesia Discharge Inst[facility] Nasir Riddle ([facility]), Portal Information Referrals: Jonathan Canas MD [ [facility] STAFF PHYSICIAN, Orthopaedic Surgical] - 02/17/25 9:45 am Equipment/Supplies: Walker Activity:: Activity as Tolerated Shower/Bathe:: 72 hours Diet:: As Tolerated Discharge Orders Discharge Orders: Discharge Order (Routine); Ordered 02/05/25 Ordered By: Jacob Cook DS: Diagnosis Discharge Diagnosis (1) Osteoarthritis of left hip: Status: Chronic
[2025-02-05] MEDS: Acetaminophen 500 MG TAB 1000 MG PO (08:59)
[2025-02-05] MEDS: Celecoxib 200 MG CAP 400 MG PO (09:00)
--- NOTE | 2025-02-05 09:06 | W.PREOPHP ---
Assessment and Plan Assessment and plan (1) History of total left hip replacement: Status: Acute Assessment and plan: Franca is a 64-year-old female with arthritis about the left hip. She is here today for left hip replacement. She has had no changes to her medical history. She had a recent annual evaluation where she was cleared for proceed with surgery. She denies any other sick illness. No fever or chills. No chest pain or shortness of breath. He may proceed with surgery today from medical standpoint. I once again reviewed hip replacement with her. I reviewed the tentacle details. I discussed the risk to include bleeding, faction, pain, stiffness, fracture, instability, damage nerves and vessels, damage to muscle and tendons. Despite these risk, she elects to proceed. History of Present Illness History of Present Illness Chief Complaint: Left Hip Arthritis Narrative: Franca is a 64-year-old female who has arthritis about her left hip. She is status post right hip replacement did very well. She is here for her left hip replacement. She denies any significant changes to her medical history. No recent sick contacts. No chest pain or shortness of breath. Review of Systems All systems reviewed & are unremarkable except as noted in HPI and below PFSH All Active Problems History of total left hip replacement (Acute 02/05/25) Hypertension (Chronic) Osteoarthritis of left hip (Chronic) History of ulcerative colitis (Chronic) S/p total proctocolectomy and ileostomy CKD (chronic kidney disease) stage 3, GFR 30-59 ml/min (Chronic) History of skin cancer (Chronic) Renal calculi (Chronic) Prediabetes (Chronic) Hyperlipidemia (Chronic) Osteoarthritis (Chronic) Generalized anxiety disorder with panic attacks (Chronic) BPPV (benign paroxysmal positional vertigo) (Chronic) Medical History Ulcerative colitis S/p total proctocolectomy and ileostomy Basal cell carcinoma of chest Basal cell carcinoma of right side of nose Surgical History History of total right hip replacement (05/21/21) H/O cystoscopy Hx of ileostomy (05/14/98) S/P proctocolectomy (05/14/98) Total proctocolectomy with ileostomy Status post Mohs surgery S/P tonsillectomy Family History Mother Hypertension Chronic kidney disease Inflammatory arthritis Father , 88 from prostate cancer Stroke Prostate cancer Brother Prostate cancer Sister No problems noted. Son No problems noted. Daughter Stargardt disease Maternal Grandfather Alcohol abuse Maternal Grandmother Dementia Paternal Grandfather Heart disease Myocardial infarction Paternal Grandmother Esophageal cancer Social History Smoking/Tobacco Use Status: Never Second Hand Exposure: Yes Smoking risk assessment performed?: Yes Alcohol Intake: never Drug use: Never Substance use type: does not use Caregiver/Support person: No Household members: none Housing: house Communication Needs: None Do you need help understanding health information?: Rarely Pets and animals: No Sexually active: No Do you think of yourself as: straight/heterosexual Current gender identity: female What is your relationship status?: How often do you talk on the phone with friends or family?: three or more times per week How often do you get together with friends or relatives?: three or more times per week How often do you attend congregational or uatsdin services?: 4 or more times per year Do you belong to any clubs or organized social groups?: no Panel score (0-1 are the most socially isolated patients): 2 What type of physical activity do you participate in: walking and weight lifting Tena/Hindu: No preference Special tena needs: No Seatbelt use: always Helmet use: Yes Helmet use: always Drive intox or ride w/intox commercial driver's license driver: No Female Reproductive History Menstrual Menopause type: natural (2011) History History 2 Para 2 Hx # Term Pregnancies Multiple births Hx # Pregnancies Ectopic pregnancies AB induced Hx Number of Living Children 2 AB spontaneous Meds Allergies and Home Medications Allergies Allergy/AdvReac Type Severity Reaction Status Date / Time mesalamine Allergy HIVES Verified 02/05/25 08:47 Sulfa (Sulfonamide Allergy Unknown Verified 02/05/25 08:47 Antibiotics) Home Medications ?Medication ?Instructions ?Recorded ?Confirmed ?Type lorazepam 1 mg tablet 1 mg PO ONCE PRN anxiety #10 tabs 03/15/21 02/05/25 Rx cholecalciferol (vitamin D3) 50 50 mcg PO DAILY 05/07/21 02/05/25 History mcg (2,000 unit) capsule magnesium citrate 100 mg capsule 150 mg PO DAILY 05/07/21 02/05/25 History multivitamin 1 tab PO DAILY 01/02/25 02/05/25 History irbesartan 75 mg tablet 75 mg PO DAILY #90 tabs 01/30/25 02/05/25 Rx potassium citrate 15 mEq (1,620 15 meq PO BID kidney stone 02/03/25 02/05/25 Rx mg) tablet,extended release prevention #180 tab-caps (Urocit-K 15) acetaminophen 500 mg tablet 1,000 mg (2 x 500 mg) PO TID #90 02/05/25 Rx tabs aspirin 81 mg tablet,delayed 81 mg PO BID #60 tabs 02/05/25 Rx release celecoxib 200 mg capsule 200 mg PO BID #60 caps 02/05/25 Rx dexamethasone 4 mg tablet 4 mg PO DAILY #2 tabs 02/05/25 Rx docusate sodium 100 mg capsule 100 mg PO BID PRN #28 caps 02/05/25 Rx oxycodone 5 mg tablet 5 mg PO Q4H PRN pain #12 tabs 02/05/25 Rx pantoprazole 40 mg tablet,delayed 40 mg PO DAILY #14 tabs 02/05/25 Rx release Exam Const General: cooperative, healthy appearing, comfortable and no acute distress Resp Effort & Inspection: normal respiratory effort Auscultation: clear to auscultation bilaterally Cardio Rate: regular rate Rhythm: regular rhythm Results Last Vital Signs Temp 36.1 C L 02/05/25 08:41 Pulse 81 02/05/25 08:41 Resp 14 02/05/25 08:41 BP 154/80 H 02/05/25 08:41 Pulse Ox 98 02/05/25 08:41
[2025-02-05] MEDS: Lactated Ringers 1,000 ML 80 ML IV (09:13)
--- NOTE | 2025-02-05 09:41 | W.ANESPRE ---
General Info Date of Service Date Performed: 02/05/25 Height: 5 ft 5.5 in Weight: 85 kg Body Mass Index (BMI): 30.7 Surgical Procedure: Operation Date: 02/05/25 11:05 Proposed Procedure Side Surgeon p Hip Total Hip Anterior, Actis Left Jonathan Canas MD Meds Allergies and Home Medications Allergies Allergy/AdvReac Type Severity Reaction Status Date / Time mesalamine Allergy HIVES Verified 02/05/25 08:47 Sulfa (Sulfonamide Allergy Unknown Verified 02/05/25 08:47 Antibiotics) Home Medication ?Medication ?Instructions ?Recorded lorazepam 1 mg tablet 1 mg PO ONCE PRN anxiety #10 tabs 03/15/21 cholecalciferol (vitamin D3) 50 50 mcg PO DAILY 05/07/21 mcg (2,000 unit) capsule magnesium citrate 100 mg capsule 150 mg PO DAILY 05/07/21 multivitamin 1 tab PO DAILY 01/02/25 irbesartan 75 mg tablet 75 mg PO DAILY #90 tabs 01/30/25 potassium citrate 15 mEq (1,620 15 meq PO BID kidney stone 02/03/25 mg) tablet,extended release prevention #180 tab-caps (Urocit-K 15) acetaminophen 500 mg tablet 1,000 mg (2 x 500 mg) PO TID #90 02/05/25 tabs aspirin 81 mg tablet,delayed 81 mg PO BID #60 tabs 02/05/25 release celecoxib 200 mg capsule 200 mg PO BID #60 caps 02/05/25 dexamethasone 4 mg tablet 4 mg PO DAILY #2 tabs 02/05/25 docusate sodium 100 mg capsule 100 mg PO BID PRN #28 caps 02/05/25 oxycodone 5 mg tablet 5 mg PO Q4H PRN pain #12 tabs 02/05/25 pantoprazole 40 mg tablet,delayed 40 mg PO DAILY #14 tabs 02/05/25 release Current Visit Medications: Current Medications Generic Name Dose Route Start Last Admin Trade Name Freq PRN Reason Stop Dose Admin Acetaminophen 1,000 mg 02/05/25 06:00 02/05/25 08:59 Acetaminophen 500 Mg Tab PO 02/05/25 23:59 1,000 mg PREOP KRANTHI Administration Acetaminophen 1,000 mg 02/05/25 07:27 Acetaminophen 500 Mg Tab PO 03/07/25 07:26 TID PRN PRN Analgesia Celecoxib 400 mg 02/05/25 06:00 02/05/25 09:00 Celecoxib 200 Mg Cap PO 02/05/25 23:59 400 mg PREOP KRANTHI Administration Docusate Sodium 100 mg 02/05/25 07:27 Docusate Sodium 100 Mg Cap PO 03/07/25 07:26 BID PRN PRN Constipation Ringer's Solution 1,000 mls @ 80 mls/hr 02/05/25 06:00 02/05/25 09:13 IV 02/05/25 23:59 80 mls/hr INFUSION KRANTHI Administration Cefazolin Sodium/Dextrose 2 gm in 50 mls @ 100 mls/hr 02/05/25 06:00 Ancef Duplex IVPB 02/05/25 23:59 PREOP KRANTHI Tranexamic Acid/Sodium Chloride 1,000 mg in 100 mls @ 600 mls/hr 02/05/25 06:00 IVPB 02/05/25 23:59 PREOP KRANTHI Ondansetron HCl 4 mg 02/05/25 07:27 Ondansetron 4 Mg/2 Ml Vial IVP 03/07/25 07:26 Q6H PRN PRN Nausea Oxycodone HCl 0 mg 02/05/25 07:27 Oxycodone 5 Mg Tab PO 03/07/25 07:26 Q3H PRN PRN Pain Polyethylene Glycol 17 gm 02/05/25 07:27 Polyethylene Glycol 3350 17 Gm Packet PO 03/07/25 07:26 BID PRN PRN Constipation Sodium Chloride 0 ml 02/05/25 06:00 Normal Saline Flush 10 Ml Syr IV 02/05/25 23:59 PRN PRN Sodium Chloride 0 ml 02/05/25 06:00 Normal Saline 10 Ml Vial IJ 02/05/25 23:59 DIRECTED PRN Sterile Water 0 ml 02/05/25 06:00 Water,Injection,Sterile 10 Ml Vial IJ 02/05/25 23:59 DIRECTED PRN PFSH Active Problems Active Problems: Problem Status Onset Code History of total left hip replacement Acute 02/05/25 Z96.642 Hypertension Chronic I10 Osteoarthritis of left hip Chronic M16.12 History of ulcerative colitis Chronic Z87.19 CKD (chronic kidney disease) stage 3, GFR 30-59 ml/min Chronic N18.30 History of skin cancer Chronic Z85.828 Renal calculi Chronic N20.0 Prediabetes Chronic R73.03 Hyperlipidemia Chronic E78.5 Osteoarthritis Chronic M19.90 Generalized anxiety disorder with panic attacks Chronic F41.1, F41.0 BPPV (benign paroxysmal positional vertigo) Chronic H81.10 Medical History Medical History Ulcerative colitis S/p total proctocolectomy and ileostomy Basal cell carcinoma of chest Basal cell carcinoma of right side of nose Surgical History Surgical History History of total right hip replacement (05/21/21) H/O cystoscopy Hx of ileostomy (05/14/98) S/P proctocolectomy (05/14/98) Total proctocolectomy with ileostomy Status post Mohs surgery S/P tonsillectomy Tobacco Smoking/Tobacco Use Status: Never Passive smoking exposure: No Second hand exposure: Yes Alcohol Alcohol Intake: never Substance Use Substance use: Never Substance use type: does not use Prental History History 2 Para 2 Hx # Term Pregnancies Multiple births Hx # Pregnancies Ectopic pregnancies AB induced Hx Number of Living Children 2 AB spontaneous Vital Signs and Lab Results Vital Signs Most Recent Vital Signs in EMR: Most Recent Vital Signs Temp Pulse Resp BP Pulse Ox 36.1 C L 81 14 154/80 H 98 02/05/25 08:41 02/05/25 08:41 02/05/25 08:41 02/05/25 08:41 02/05/25 08:41 Lab Results Complete Blood Count: WBC, (4.4-10.8) 9.13 10^3/uL 01/28/25, 11:45 RBC, (3.93-5.22) 5.63 10^6/uL H 01/28/25, 11:45 Hgb, (11.2-15.7) 15.5 g/dL 01/28/25, 11:45 Hct, (36.0-46.0) 48.4 % H 01/28/25, 11:45 Plt Count, (130-400) 233 10^3/uL 01/28/25, 11:45 Complete Metabolic Panel: Sodium, (136-145) 137 mmol/L 01/28/25, :45 Potassium, (3.5-5.1) 4.5 mmol/L 01/28/25, : Chloride, (98-107) 103 mmol/L 01/28/25, Carbon Dioxide, (20.0-31.0) 26.5 mmol/L 01/28/25, BUN, (9-23) 15 mg/dL 01/28/25, Creatinine, (0.55-1.02) 0.79 mg/dL 01/28/25, :45 Est GFR (CKD-EPI 2020), (mL/min/1.73m2) 72.72 01/28/25, Calcium, (8.3-10.6) 9.3 mg/dL 01/28/25, Albumin, (3.4-5.0) 4.6 g/dL 01/07/25, Glucose, (74-106) 102 mg/dL 01/28/25, Hemoglobin A1c, (<5.7) 5.9 % H 01/07/25, Liver Function Panel: ALT, (10-49) 35 U/L 01/07/25, AST, (<34) 22 U/L 01/07/25, : Infectious Disease: HIV 1&2 Ag/Ab, 4th Gen, (Negative) Negative 01/07/25, : Hep Bs Antigen, (Negative) Negative 01/07/25, Hepatitis C Antibody, (Negative) Negative 01/07/25, : Imaging and Studies Imaging and Studies Study information below may be from another EMR and interpreted by another provider. Please see original notes in EMR for more complete details. EKG Summary: 01/02/25: Exam: Resting ECG Reason for Exam: pre op Patient Location: O HR:69 bpm ECG Measurements Heart Rate 69 AXIS KS 193 P 9 QRSd 86 QRS -6 QT 411 T23 QTc 441 Conclusion Sinus rhythm...normal P axis, V-rate 50- 99 Normal Electrocardiogram Anesthesia Assessment and Plan Anesthesia History Personal History: Other Family History: No Family History of Anesthesia Complications Exercise Tolerance Exercise Tolerance: Metabolic Equivalents>4 Pertinent Negatives Pertinent Negatives: No Symptoms of GERD, No Major Cardiovascular Symptoms or Complaints and No Major Pulmonary Symptoms or Complaints Cardiac & Pulmonary Exam Cardiac Exam: Normal S1/S2 Heart Sounds Pulmonary Exam: Clear Bilateral Breath Sounds Implantable Cardiac Device Does patient have a Pacemaker or an ICD?: No Airway Exam Known Difficult Airway: No Mallampati Class: 3 Mouth Opening: Normal (> 3cm) Thyromental Distance: Greater than 3 cm Neck Range of Motion: Limited ROM Neck Circumference: Normal Teeth Condition: Normal Dentition ASA Classification ASA Score: ASA 2 Emergency Case?: No NPO Status NPO Status: NPO Clears >2 hours, Solids >8 hours Anesthesia Plan Resuscitation Status: Full Code Anesthesia Technique: Spinal Anesthesia Airway Planned: Natural Airway Monitors Used: Standard Monitors
[2025-02-05] MEDS: ceFAZolin 2 GM/50 ML BAG IVPB (10:06)
[2025-02-05] MEDS: TRANEXAMIC ACID/SOD. CHL. 1,000 MG/100 ML BAG 600 MG IVPB (10:20)
[2025-02-05] MEDS: ROPIvacaine/EPI/CLONIDINE/KET 50 ML SYRINGE IJ (10:35)
--- NOTE | 2025-02-05 11:13 | W.PM.OP ---
Operative Note Operative Note PRE-OP DIAGNOSIS: Left Hip Osteoarthritis POST-OP DIAGNOSIS: same PROCEDURE: Left Anterior Total Hip Arthroplasty with Intraoperative Navigation SURGEON: Jonathan Canas RANCH SUPERVISOR: Jacob Cook ANESTHESIA TYPE: Spinal Refer to Anesthesia Record ESTIMATED BLOOD LOSS: 200 PATHOLOGY: none sent TOURNIQUET TIME: 0 COMPLICATIONS: None Patient was transported to: PACU Patient's condition: stable Implants: 1. Depuy [place] Acetabular Component, 54mm 2. Depuy Acetabular Liner, 30q95gl 3. Depuy Actis Standard Collared Femoral Stem, Size 6 4. Depuy Altrx Ceramic Femoral Head, Size 36+5mm Indications: I have seen Franca in clinic for symptoms of hip arthritis, confirmed with radiographic findings. She has exhausted nonoperative methods and was having significant limitations in daily function and desired better function and less pain. I discussed the technical details of a hip replacement. I explained the risks of the procedure to include, but not limited to, bleeding, infection, pain, stiffness, fracture, damage to nerves and vessels, damage to muscles and tendons, loosening, instability, leg length inequality, need for repeat procedure, blood clot and cardiopulmonary demise. Despite these risks, Franca elected to proceed. Findings: There was significant signs of arthritis throughout the hip with large osteophytes throughout. Procedure Description: Franca was greeted in the preoperative holding area where the correct side was identified and marked. The consent was reviewed with the patient and signed. The history and physical was updated. All questions were answered. She was taken back to the operating room. A spinal anesthestic was then administered. The feet were wrapped with cast padding and Coban and then placed into the boot liners and then into the boots. Care was taken to protect the skin and make sure the heels were fully down and the boots were stable. The patient was then positioned onto the HANA table. Both legs were held in a neutral position. SCDs were applied. The patient was then slid down onto a peroneal post. Prophylactic antibiotics in the form of Cefazolin were administered. 1g of Tranxemic Acid was given intravenously within 30 minutes of incision. The left leg was then prepped with Chloraprep and draped in a standard fashion. A second prep with Chloraprep was performed prior to placement of a shower-curtain type drape with Iodine impregnated skin protection. A timeout to confirm correct identity, side and site, procedure, allergies, anesthesia, and medical concerns was performed. An obliquely oriented incision was made starting lateral to the ASIS and running distal over the Tensor Fascia Li (TFL) muscle belly toward the fibular head, approximately 10cm. The skin and soft tissue was dissected sharply, through Leland?s fascia, and to the fascia of the TFL. With the fascia and superior border of the IT band identified, the fascia was incised with a new knife just above any perforators from the IT band. The TFL muscle belly was bluntly dissected away from the fascia and moved laterally. The fat between TFL and rectus was identified to ensure the dissection was not within the TFL. Blunt dissection created space between abductors and the capsule and retractor was placed over the lateral femoral neck. The fibers of the rectus femoris tendon were identified and these were freed from the anterior capsule. A second cobra retractor was placed around the medial femoral neck. The TFL was further retracted laterally to show the deep fascia. Careful dissection through this layer identified three main crossing vessels of the lateral femoral circumflex. These were cauterized in multiple locations and then cut without any noticeable bleeding. The TFL was further released bluntly from the deep fascia to expose anterior hip capsule and fat The soft tissue orthopaedic retractor was then placed beneath the TFL and against sartorius and medial soft tissues to protect and retract the soft tissues. A T-capsulotomy was then performed starting at the superior lateral acetabulum and moving distally to the intertrochanteric ridge. These capsular flaps were tagged with a No. 1 Vicryl and elevated from within. The capsular flaps were released to the shoulder of the lateral neck and to the lesser trochanter to give excellent visualization of the proximal femur. A neck osteotomy was performed using an oscillating saw based on preoperative templates. This cut started in the shoulder and of the lateral neck and exited medially. The saw was at all times directed medially to avoid injury to the greater trochanter. Gross traction was applied to the leg and the osteotomy opened. The femoral head was removed with a corkscrew, making sure to protect the TFL on its exit. Traction was released after head removal. This was measured on the back table to determine the starting reamer size. Portions of the rectus obscuring visualization were minimally elevated off the superior acetabulum. An anterior retractor was placed over the anterior wall between capsule and labrum and attached to the Gripper retraction system. The femur was rotated to 90 degrees and medial capsule was fully released until the lesser trochanter was palpable and visible; the femur was returned to 30 degrees. A posterior retractor was placed similarly between capsule and labrum. This provided excellent visualization. The contents of the cotyloid fossa were removed with electrocautery and the labrum was removed with a knife. There was a notable floor osteophyte. There was significant chondromalacia of the superior acetabulum. Acetabular reaming began with a 49mm reamer. This first reaming was directed anterior to posterior and medial to get down to the true floor. This was inspected and reamed until the true floor was reached. The anterior retractor was then released and entry and exit was provided by traction on the capsular flaps. I then reamed sequentially up to a 54mm reamer where good fit was obtained. The larger reamers were oriented based on anatomical reference of the anterior and lateral gonzalez to ensure proper abduction and anteversion. Positioning and size was confirmed with the fluoroscopy. A 54mm Depuy [place] acetabular component was selected. The acetabulum was reamed around the periphery with the selected acetabular size to prevent a rim fit. The deep tissues were irrigated. The acetabular component was then impacted in a position of about 40-45 degrees of abduction and 15-20 degrees of anteversion, using the patient?s anatomy as the ultimate landmark. Fluoroscopy was used to confirm this. There was excellent taxation agent of the acetabular component and the inserting handle was removed. The acetabular liner, Depuy [id number] polyethylene liner, was inserted and lined up with the tines of the acetabular component. There was no soft tissue interposition. The liner was then impacted into position and confirmed to be well-seated. A portion of the cecilio-articular cocktail was then injected around the acetabulum into the capsule and periosteum. This cocktail consisted of 123mg of Ropivacaine, 0.25mg of Epinephrine, 0.04mg of Clonidine, and 15mg of Ketorolac, diluted to 50cc. The leg was rotated to 120 degrees. Any remaining medial capsule was released until the lesser trochanter was easily palpable. A retractor was placed medially. The lateral capsule was further released into the shoulder to allow access to the greater trochanter. A Saldivar retractor was placed over the greater trochanter which allowed the trochanter to flip in front of the capsule for excellent exposure. The leg was brought down into maximal extension and 20 degrees of adduction while ensuring there was no impingement on the acetabulum. Any remnant capsule within the trochanter was released. Piriformis and obturator externis were identified and protected. There was excellent access to the proximal femur. The lateral neck remnant was removed with a rongeur. A blunt canal probe was used to identify the canal and trajectory for later broaching. A box osteotome initiated the broach course. A small curved rasp and a curved curette were used to work laterally. Broaching then began with a starter Actis broach. This was inserted manually around the trochanter and into the canal before mallet blows. The broach was seated to a few millimeters below the cut level based on the neck cut and the preoperative template. Sequential broaching was continued with the Squid Facil pneumatic broaching device until a tight fit was obtained with good rotational control of the femur. A trial standard neck was inserted along with a +5 trial head. The leg was brought out of extension and adduction and then reduced with traction and internal rotation. The leg was stable anteriorly in a position of 30 degrees of extension and 90 degrees of external rotation. Fluoroscopy was used to ensure there was no fracture and the stem was seated well. Leg lengths were checked with an AP pelvis and pelvic reference points. dermSearch navigation system was used to confirm appropriate positioning and leg length and offset. Once content with the desired offset and leg lengths, the leg was brought back into extension, external rotation and adduction. The periosteum and surrounding tissue was injected with remaining portion of the cecilio-articular cocktail. The proximal femur was irrigated as well as the deep tissues. The [employer] standard collared stem, size 6, was then manually inserted into the proximal femur making sure to control rotation. It was then malleted into position with light blows, giving breaks to allow bone expansion and decrease risk of fracture. The selected Depuy Altrx Ceramic Head, size 36+5mm, was then placed onto the clean and dry trunnion and secured with impaction onto the tapered fit. The leg was brought back out of extension and adduction and reduced with traction and internal rotation. Stability was confirmed with no shuck at 90 degrees of external rotation and 30 degrees of extension. No impingement through range of motion arc. Final x-ray images were obtained with fluoroscopy to confirm adequate positioning and no intraoperative fracture. The deep tissues were thoroughly irrigated with Surgiphor, betadine solution. This was allowed to sit in the wound for 3 minutes before being thoroughly irrigated out with normal saline. The capsule was then reapproximated with the previously placed sutures. The TFL fascia was finally closed with a No. 2 Stratafix, barbed suture. Deep tissues were then reapproximated with 0 Vicryl and a running 2-0 Vicryl. The skin was closed with a running 4-0 Monocryl in a subcuticular fashion. This was reinforced with skin glue. A Mepilex silver dressing was applied. At the end of the case, all counts were correct. Franca was transferred to the hospital bed without difficulty and suffering no apparent complication. Franca has a good prognosis. Physical therapy will start today and without restrictions, weight-bearing as tolerated. Aspirin 81mg BID will be used for DVT prophylaxis. Date of Procedure: 02/05/25
--- NOTE | 2025-02-05 11:17 | DI.RAD_ITS ---
Exam(s) XR HIP LT IN OR EXAM: XR HIP LT IN OR CLINICAL HISTORY: Osteoarthritis of left hip. TECHNIQUE: 2D and realtime digital imaging was performed. COMPARISON: CR XR HIP LT COMPLETE AP PELVIS from 12/26/2024 FINDINGS: Hard copy images show placement of a left hip prosthesis. The alignment appears satisfactory. Please see procedure note for details. Fluoro time: 29.5seconds RADIATION DOSE DELIVERED: Ka,r=3.06 mGy
[2025-02-05] MEDS: fentaNYL 100 MCG/2 ML VIAL IVP (12:12)
--- NOTE | 2025-02-05 12:12 | W.ANESPOSTOP ---
Postoperative Evaluation Date, Time and Location Date Performed: 02/05/25 Time Performed: 12:12 Patient Location: PACU Vital Signs Most Recent Imported Vital Signs: Most Recent Vital Signs Temp Pulse Resp BP Pulse Ox 36.7 C 81 14 154/80 H 98 02/05/25 11:49 02/05/25 08:41 02/05/25 08:41 02/05/25 08:41 02/05/25 08:41 Pain Score Most Recent Pain Score: Most Recent Pain Score Pain Level 4 02/05/25 11:49 Assessment Mental Status: Awake (Alert & Oriented to Patient Baseline) Airway and Respiratory Function: Patent airway with normal (patient baseline) respiratory exam Cardiovascular Function: Hemodynamically Stable Hydration Status: Adequately Hydrated Nausea & Vomiting: No Nausea or Vomiting Pain: Pain is Moderate or Severe Postoperative Pain Management: Pain being addressed with medication Peripheral Nerve Block: Patient did not receive a nerve block
--- NOTE | 2025-02-05 13:35 | PT.INIE ---
PT Notes Visit Reasons: L THR Physical Therapy Day Surgery Initial Evaluation Date: 02/05/2025 Referring Doctor: GUIDO Arzate PT Orders: PT CONSULT: S/P Ortho Surgery Precautions: WBAT through the left LE with AD. Patient Profile/Admitting Diagnosis: Franca is a 64-year-old female with degenerative joint disease of the left hip and is status post left anterior total hip arthroplasty on postoperative day 0. EBL 200 mL. Spinal anesthetic given intraoperatively. PMHx: All Active Problems History of total left hip replacement (Acute 02/05/25) Hypertension (Chronic) Osteoarthritis of left hip (Chronic) History of ulcerative colitis (Chronic) S/p total proctocolectomy and ileostomy CKD (chronic kidney disease) stage 3, GFR 30-59 ml/min (Chronic) History of skin cancer (Chronic) Renal calculi (Chronic) Prediabetes (Chronic) Hyperlipidemia (Chronic) Osteoarthritis (Chronic) Generalized anxiety disorder with panic attacks (Chronic) BPPV (benign paroxysmal positional vertigo) (Chronic) Medical History Ulcerative colitis S/p total proctocolectomy and ileostomyBasal cell carcinoma of chest Basal cell carcinoma of right side of nose Surgical History History of total right hip replacement (05/21/21) H/O cystoscopy Hx of ileostomy (05/14/98) S/P proctocolectomy (05/14/98) Total proctocolectomy with ileostomyStatus post Mohs surgery S/P tonsillectomy Social History/Home Situation: Lives with Frankie in a private home with 2 steps to enter without rails. Independent with prior level of function. Works from home. Equipment Owned/DME: None Subjective: Patient verbalized less than 5 out of 10 pain in the left hip which subsided significantly after mobility performance using front wheeled walker. Objective: General Observation: Mepilex Ag over surgical incision. TDS to be legs. Mental Status: A and O x 4 Pain: <5/10 in the L hip ROM: Right Lower Extremity: Hip flexion WFL. Hip abduction WFL. Knee flexion WFL. Ankle dorsiflexion WFL. Ankle plantarflexion WFL. Left Lower Extremity: Hip flexion WFL. Hip abduction WFL. Knee flexion WFL. Ankle dorsiflexion WFL. Ankle plantarflexion WFL. Strength: Right Lower Extremity: Hip flexors 5/5. Hip abductors 5/5. Knee flexors 5/5. Knee extensors 5/5. Ankle dorsiflexors 5/5. Ankle plantarflexors 5/5. Left Lower Extremity:Hip flexors 4-/5. Hip abductors 4-/5. Knee flexors 4-/5. Knee extensors 4-/5. Ankle dorsiflexors 5/5. Ankle plantarflexors 5/5. Sensation: Intact as to pain and light pressure in bilateral lower extremities Bed Mobility/Transfers: Minimal cueing provided for use of B hands as needed for support, movement sequence, AD management, and posture to reduce fall risk and minimize pain report Sit to stand standby assist with FWW Stand to sit standby assist with FWW Bed to chair standby assist with FWW Gait: Facilitate safe and correct performance of level surface ambulation covering a distance of 150 feet with step through heel-toe reciprocal gait pattern requiring only standby assist using front wheeled walker with minimal verbal cueing for limb movement sequence, AD management, hand placement, and posture to minimize pain report and reduce fall risk. Stairs: Guided patient with safe and correct negotiation of 3 x 4 inch steps and 2 x 6 inch steps while holding onto bilateral rails with step to gait pattern with minimal verbal cueing provided for limb movement sequence, hand placement, and posture to minimize pain reported reduce fall risk. Standby assist only. Balance: Static Sitting: Normal Dynamic Sitting: Normal Static Standing: Fair Dynamic Standing: Fair Special Tests: Mobility Limitations Standardized Measure [facility] AM-PAC 6 clicks Basic Mobility Inpatient Short Form: Raw Score: 23 CMS Score: 11% deficit Informed Consent/Education: Patient instructed in purpose of PT consult. Packet containing CHAI exercise protocol has been given to patient. Education and training on initial set of exercises that can be done at home have been completed with patient. Trained patient with correct performance of exercises below to maximize motor control, joint flexibility, soft tissue extensibility of the L hip musculature to facilitate return to independent functional mobility performance. Access Code: [email or web address] URL: [email or web address] Date: 02/05/2025 Prepared by: Ninoska Diaz Exercises - Gluteal Sets - 1 x daily - 7 x weekly - 1 sets - 10 reps - 5 hold - Supine Heel Slide - 1 x daily - 7 x weekly - 1 sets - 10 reps - 5 hold - Supine Ankle Pumps - 1 x daily - 7 x weekly - 1 sets - 10 reps - 5 hold - Seated March - 1 x daily - 7 x weekly - 1 sets - 10 reps - 5 hold - Seated Long Arc Quad - 1 x daily - 7 x weekly - 1 sets - 10 reps - 5 hold Assessment: Patient required the use of a front wheeled walker for all mobility ADL performance maximize independence and reduce fall risk. Patient presents with clinical signs and symptoms consistent with current/admitting diagnoses that have resulted to mobility limitations, gait instability, generalized weakness, and impairment of motor control as demonstrated by the following impairment level findings: 1. Decreased strength to left L hip muscle groups 2. Impaired standing balance Impairments are contributing to the following functional limitations: 1. Inability to safely ambulate without assistive device 2. Increase completion time for mobility ADL performance 3. Increased fall risk Patient is assessed as a 13532 moderate complexity based on the following: History: 64-year-old female with impairment level findings, functional limitations, and past medical history as indicated above Examination: Demonstrable impairment in strength, balance, and mobility level with underlying impairments and functional limitations as documented above Presentation: Evolving Decision Makin moderate complexity Goals: N/A. PT evaluation and 1-2 treatment sessions only for functional mobility training using recommended AD and for HEP instruction. Plan of Care/Treatment Plan: N/A. PT evaluation and 1-2 treatment session only for functional mobility training using recommended AD and for HEP instruction. DISCHARGE RECOMMENDATIONS: Home when medically cleared by orthopedic surgeon. Recommend outpatient PT services in order to optimize functional mobility outcomes and facilitate return to independent community ambulation without an assistive device. TREATMENT CODE/TIME: 19903 x 20 minutes for 1 unit, 87840 x 10 minutes for 1 unit (13:35?14:05). Thank you for the opportunity to participate in the care of this patient. Ninoska Diaz PT, DPT, CLT [facility] [place], [place]
[2025-02-05] MEDS: Tranexamic Acid 650 MG TAB 1300 MG PO (13:36)
[2025-02-05] MEDS: oxyCODONE 5 MG TAB PO (13:36)
== END 2025-02-05 14:40 | disposition home or self-care (01) ==
PROVIDERS: PCP Nurse Practitioner Family; Visit Provider Student in an Organized Health Care Education/Training Program
PROC: (CPT 27130; principal; 2025-02-05 10:45)
DX: Z96.642 Presence of left artificial hip joint (principal); M16.12 Unilateral primary osteoarthritis, left hip
CPT/HCPCS: 20985; 27447; 97162; 97530; 73501; C1776; J0690; J2003; J2250; J2371; J2401; J2405; J2704; J3010

== ENCOUNTER 2025-02-17 15:25 | Outpatient (CLI) | payer MEDICARE, SELFPAY ==
--- NOTE | 2025-02-17 10:00 | DI.RAD_ITS ---
Exam(s) XR HIP LT COMPLETE AP PELVIS EXAM: XR HIP LT COMPLETE AP PELVIS INDICATION: F/U LEFT CHAI. COMPARISON: CR XR HIP LT COMPLETE AP PELVIS from 12/26/2024 XA XR HIP LT IN OR from 02/05/2025 TECHNIQUE: 2D digital imaging was performed. Two views. FINDINGS: Stable appearance of the right hip prosthesis. The left hip prosthesis appears unchanged from intraoperative images. No abnormal bony lucencies. DATA REPOSITORY: RADIATION DOSE DELIVERED:
== END 2025-02-17 15:26 | disposition home or self-care (01) ==
LOC: DIORS 15:26
PROVIDERS: PCP Nurse Practitioner Family; Referring Provider Nurse Practitioner Family; Visit Provider Student in an Organized Health Care Education/Training Program
DX: Z47.1 Aftercare following joint replacement surgery (principal); Z96.642 Presence of left artificial hip joint
CPT/HCPCS: 99024; 73502